=== PATIENT | female | born 1965 | race American Indian/Alaskan Native ===

== ENCOUNTER 2016-04-02 09:18 | Outpatient (CLI) | payer OTHER ==
--- NOTE | 2016-04-02 13:40 | Mammography Report ---
BILATERAL DIGITAL SCREENING MAMMOGRAM with CAD: 04/02/16 CLINICAL: Routine screening. COMPARISON:03/20/15 FINDINGS: The breasts are heterogeneously dense, which may obscure small masses. No mass, architectural distortion or suspicious calcifications. IMPRESSION: No mammographic evidence of malignancy. BI-RADS CATEGORY: 1 - - Negative RECOMMENDATION: Routine mammographic screening in one year. COMMENT: Patient follow-up letters are generated by our [employer] application. The
== END 2016-04-02 09:19 | disposition home or self-care (01) ==
LOC: SPVWC 09:18
PROVIDERS: ATTEND General Practice
DX: Z12.31 Encounter for screening mammogram for malignant neoplasm of breast (principal)
CPT/HCPCS: 77067; G0202

== ENCOUNTER 2020-07-09 22:57 | Emergency (ER) | payer OTHER ==
[2020-07-09] MEDS ORDERED: IPRATROPIUM 0.02% NEBU 2.5 ML IH ONE (23:18)
[2020-07-09] MEDS ORDERED: ALBUTEROL 2.5 MG/3 ML NEBU IH ONE (23:18)
--- NOTE | 2020-07-10 00:14 | XRay Report ---
CHEST 2 VIEWS INDICATION: sob. COMPARISON: None FINDINGS: SUPPORT DEVICES: None. HEART: Within normal limits. LUNGS/PLEURA: No acute air space or interstitial disease. No pneumothorax. ADDITIONAL FINDINGS: None. IMPRESSION: 1. No acute findings. Signer Name: Esdras Chang MD Signed: 07/10/2020 12:09 AM Workstation Name: [id number]
[2020-07-10] MEDS ORDERED: ACETAMINOPHEN 500 MG TAB PO ONE (00:47)
[2020-07-10] MEDS ORDERED: methylPREDNISolone Sod Succinate 125 MG/2 ML INJ IM ONE (00:47)
[2020-07-10] MEDS ORDERED: methylPREDNISolone Sod Succinate 125 MG/2 ML INJ ONE (00:48)
--- NOTE | 2020-07-10 01:29 | Emergency Department Report ---
- General Chief Complaint: Dyspnea/Respdistress Stated Complaint: ASTHMA/TROUBLE BREATHING Source: patient Mode of arrival: Ambulatory Limitations: No Limitations - History of Present Illness Initial Comments: Patient is a 55-year-old -[place] female with a history of asthma who presents to the ED with complaint of acute onset persistent nasal and sinus congestion, frontal sinus pressure, frontal headache, dry cough, wheezing and shortness of breath for the last 4 days. Patient states that she has been using her albuterol inhaler with no relief. Patient states that she was initially evaluated by her primary care physician 5 days ago and given a prescription for Breo but the insurance did not approve the prescription, and that in the last 2 days her symptoms got worse such that she has not been able to sleep because of worsening shortness of breath, cough, wheezing as well as nasal and sinus congestion and frontal sinus pressure. Patient states that in the last 12 hours she has had to use her bronchodilators multiple times with no relief. Patient states that she decided come to the ED for evaluation because her regular medications at home were not able to help. Patient denies chest pain, dizziness, syncope, fever, chills, sore throat, change in vision, abdominal pain, numbness and tingling or weakness of upper and lower extremities bilaterally, palpitations, neck pain or nosebleed. MD Complaint: cough (Dry cough), rhinorrhea, nasal congestion, sinus pain (Right maxillary and frontal sinus pressure), other (Shortness of breath, wheezing and dry cough due to asthma attack) -: Sudden, days(s) (4) Severity: severe Severity scale (0 -10): 7 Quality: dull, aching Consistency: intermittent Improves With: nothing Worsens With: activity, other (Exposure to pollen) Context: other (Exposure to pollen) Associated Symptoms: denies other symptoms, headache (Frontal headache), rhinorrhea, nasal congestion, shortness of breath. denies: fever, chills, stiff neck, cough, chest pain, abdominal pain, nausea, vomiting, diarrhea, dysuria, rash, confusion, right sweats, weight loss, epistaxis, ear pain Treatments Prior to Arrival: other (Bronchodilators albuterol) - Related Data Previous Rx's Medication Instructions Recorded Last Taken Type Acetaminophen/Codeine 1 tab PO Q6H PRN #20 tab 02/13/14 Unknown Rx [Acetaminophen-Codeine #3 TAB] Cyclobenzaprine [Flexeril 10mg] 10 mg PO TID PRN #30 tablet 02/13/14 Unknown Rx Ibuprofen [Motrin] 600 mg PO Q8H PRN #40 tablet 02/13/14 Unknown Rx Albuterol Mdi (or & Nicu Only) 2 puff IH QID PRN #1 inhalation 05/11/14 Unknown Rx [Proair] Amoxicillin [Amoxicillin TAB] 875 mg PO BID #28 tablet 05/11/14 Unknown Rx predniSONE [Prednisone] 10 mg PO Q24HR #12 tablet 05/11/14 Unknown Rx Amoxicillin [Trimox CAP] 500 mg PO Q8H #30 capsule 07/10/20 Unknown Rx Benzonatate [Tessalon Perles] 100 mg PO Q8HR #30 capsule 07/10/20 Unknown Rx Cetirizine HCl [Zyrtec 10mg tab] 10 mg PO DAILY #30 tablet 07/10/20 Unknown Rx Fluticasone [Flonase] 1 spray NS QDAY #1 bottle 07/10/20 Unknown Rx Montelukast [Singulair] 10 mg PO QPM #30 tablet 07/10/20 Unknown Rx methylPREDNISolone [Medrol 4MG 4 mg PO DAILY #21 tab.ds.pk 07/10/20 Unknown Rx DOSEPAK (21 tabs)] Allergies Allergy/AdvReac Type Severity Reaction Status Date / Time morphine Allergy Hives Verified 05/11/14 10:17 ED Review of Systems ROS: Stated complaint: ASTHMA/TROUBLE BREATHING Other details as noted in HPI Constitutional: denies: chills, fever Eyes: denies: eye pain, eye discharge, vision change ENT: congestion (Nasal and sinus congestion), other (Frontal and maxillary sinus pressure). denies: ear pain, throat pain Respiratory: cough (Dry cough), shortness of breath, wheezing Cardiovascular: denies: chest pain, palpitations Endocrine: no symptoms reported Gastrointestinal: denies: abdominal pain, nausea, diarrhea Genitourinary: denies: urgency, dysuria, discharge Musculoskeletal: denies: back pain, joint swelling, arthralgia Skin: denies: rash, lesions Neurological: headache (Frontal headache). denies: weakness, paresthesias Psychiatric: denies: anxiety, depression Hematological/Lymphatic: denies: easy bleeding, easy bruising ED Past Medical Hx - Past Medical History Hx Asthma: Yes - Surgical History Additional Surgical History: ABD SURGERY FROM DR ASCENCIO - Social History Smoking Status: Current Some Day Smoker - Medications Home Medications: Home Medications Medication Instructions Recorded Confirmed Last Taken Type Acetaminophen/Codeine 1 tab PO Q6H PRN #20 tab 02/13/14 Unknown Rx [Acetaminophen-Codeine #3 TAB] Cyclobenzaprine [Flexeril 10mg] 10 mg PO TID PRN #30 tablet 02/13/14 Unknown Rx Ibuprofen [Motrin] 600 mg PO Q8H PRN #40 tablet 02/13/14 Unknown Rx Albuterol Mdi (or & Nicu Only) 2 puff IH QID PRN #1 inhalation 05/11/14 Unknown Rx [Proair] Amoxicillin [Amoxicillin TAB] 875 mg PO BID #28 tablet 05/11/14 Unknown Rx predniSONE [Prednisone] 10 mg PO Q24HR #12 tablet 05/11/14 Unknown Rx Amoxicillin [Trimox CAP] 500 mg PO Q8H #30 capsule 07/10/20 Unknown Rx Benzonatate [Tessalon Perles] 100 mg PO Q8HR #30 capsule 07/10/20 Unknown Rx Cetirizine HCl [Zyrtec 10mg tab] 10 mg PO DAILY #30 tablet 07/10/20 Unknown Rx Fluticasone [Flonase] 1 spray NS QDAY #1 bottle 07/10/20 Unknown Rx Montelukast [Singulair] 10 mg PO QPM #30 tablet 07/10/20 Unknown Rx methylPREDNISolone [Medrol 4MG 4 mg PO DAILY #21 tab.ds.pk 07/10/20 Unknown Rx DOSEPAK (21 tabs)] ED Physical Exam - General Limitations: No Limitations General appearance: alert, in no apparent distress - Head Head exam: Present: atraumatic, normocephalic, normal inspection - Eye Eye exam: Present: normal appearance, PERRL, EOMI Pupils: Present: normal accommodation - ENT ENT exam: Present: normal orophraynx, mucous membranes moist, TM's normal b ilaterally, normal external ear exam, other (Grossly congested nasal passages; palpable frontal and maxillary sinus tenderness) - Neck Neck exam: Present: normal inspection, full ROM - Respiratory Respiratory exam: Present: wheezes (Diffuse mild wheezes throughout). Absent: respiratory distress, rales, rhonchi, stridor, chest wall tenderness, accessory muscle use, decreased breath sounds, prolonged expiratory - Cardiovascular Cardiovascular Exam: Present: normal rhythm, tachycardia, normal heart sounds. Absent: systolic murmur, diastolic murmur, rubs, gallop - GI/Abdominal GI/Abdominal exam: Present: soft, normal bowel sounds. Absent: tenderness, guarding, rebound, hyperactive bowel sounds, hypoactive bowel sounds, organomegaly - Extremities Exam Extremities exam: Present: normal inspection, full ROM, normal capillary refill - Back Exam Back exam: Present: normal inspection, full ROM. Absent: tenderness, CVA tenderness (R), CVA tenderness (L), muscle spasm, paraspinal tenderness, vertebral tenderness - Neurological Exam Neurological exam: Present: alert, oriented X3, CN II-XII intact, normal gait, reflexes normal - Psychiatric Psychiatric exam: Present: normal affect, normal mood - Skin Skin exam: Present: warm, dry, intact, normal color. Absent: rash ED Course Vital Signs 07/09/20 07/09/20 07/10/20 23:13 23:56 00:51 Temperature 97.9 F Pulse Rate 107 H Pulse Rate [ 102 H Bilateral Throughout] Respiratory 20 16 Rate Respiratory 20 Rate [Bilateral Throughout] Blood Pressure 157/83 O2 Sat by Pulse 91 Oximetry ED Medical Decision Making - Radiology Data Radiology results: report reviewed, image reviewed [address] [id number] XRay Report Signed Patient: MARY TIDWELL MR#: [id number] : 1965 Acct:[id number] Age/Sex: 55 / F ADM Date: 07/09/20 Loc: ED Attending Dr: Ordering Physician: EDER DOZIER MD Date of Service: 07/09/20 Procedure(s): XR chest routine 2V Accession Number(s): [id number] cc: ED MD JACOBY Fluoro Time In Minutes: CHEST 2 VIEWS INDICATION: sob. COMPARISON: None FINDINGS: SUPPORT DEVICES: None. HEART: Within normal limits. LUNGS/PLEURA: No acute air space or interstitial disease. No pneumothorax. ADDITIONAL FINDINGS: None. IMPRESSION: 1. No acute findings. Signer Name: Esdras Chang MD Signed: 07/10/2020 12:09 AM Workstation Name: [id number] Transcribed By: ADDY Dictated By: Esdras Chang MD Electronically Authenticated By: Esdras Chang MD Signed Date/Time: 07/10/208 DD/ TD/TT: - Medical Decision Making This is a 55-year-old -[place] female with a history of asthma who presents to the ED with complaint of acute onset persistent nasal and sinus congestion, frontal sinus pressure, frontal headache, dry cough, wheezing and shortness of breath for the last 4 days. Patient states that she has been using her albuterol inhaler with no relief. Patient states that she was initially evaluated by her primary care physician 5 days ago and given a prescription for Breo but the insurance did not approve the prescription, and that in the last 2 days her symptoms got worse such that she has not been able to sleep because of worsening shortness of breath, cough, wheezing as well as nasal and sinus congestion and frontal sinus pressure. Patient states that in the last 12 hours she has had to use her bronchodilators multiple times with no relief. Patient states that she decided come to the ED for evaluation because her regular medications at home were not able to help. In the ED, patient is alert and oriented x3 and is not in any distress. Patient is however tachycardic and afebrile in triage. Patient received DuoNeb treatment in the ED, also received Solu-Medrol 125 mg intramuscular injection. Chest x-ray showed no acute cardiopulmonary abnormalities or pneumonitis. On reevaluation, patient's wheezing resolved and her tachycardia also improved significantly to 102 bpm after using DuoNeb. Patient was therefore discharged home on medications and advised to follow-up with her primary care physician in 5 to 7 days for reevaluation or return to the ED immediately if symptoms get worse. - Differential Diagnosis Asthma; bronchitis; URI; sinusitis; pneumonia; allergic rhinitis Critical care attestation.: If time is entered above; I have spent that time in minutes in the direct care of this critically ill patient, excluding procedure time. ED Disposition Clinical Impression: Acute bronchitis with asthma with acute exacerbation, Acute non-recurrent frontal sinusitis, Chronic seasonal allergic rhinitis, Acute upper respiratory infection Disposition: - TO HOME OR SELFCARE Is pt being admited?: No Does the pt Need Aspirin: No Condition: Stable Instructions: Acute Bronchitis (ED), Sinusitis, Adult, [id number], Allergies, Adult, [id number]-nd-[id number], Upper Respiratory Infection, Adult, [id number], Acute Bronchitis, Adult, Fxpo-yj-Yqrm, Asthma, Adult, [id number]-[id number] Additional Instructions: Chest x-ray shows no acute cardiopulmonary abnormalities or pneumonitis. Take medication for asthma as needed, follow-up with your primary care physician in 3 to 5 days for reevaluation. Return to the ED immediately if symptoms get worse. Prescriptions: Fluticasone [Flonase] 1 spray NS QDAY #1 bottle methylPREDNISolone [Medrol 4MG DOSEPAK (21 tabs)] 4 mg PO DAILY #21 tab.ds.pk Montelukast [Singulair] 10 mg PO QPM #30 tablet Benzonatate [Tessalon Perles] 100 mg PO Q8HR #30 capsule Amoxicillin [Trimox CAP] 500 mg PO Q8H #30 capsule Cetirizine HCl [Zyrtec 10mg tab] 10 mg PO DAILY #30 tablet Referrals: ASHU LECHUGA MD [Staff Physician] - 3-5 Days Forms: Work/School Release Form(ED) Time of Disposition: 01:32 Print Language: YI
[2020-07-10 02:08] VITALS: BP 128/67
== END 2020-07-10 02:18 | disposition home or self-care (01) ==
LOC: ED 22:57
DX: J45.901 Unspecified asthma with (acute) exacerbation (principal); J06.9 Acute upper respiratory infection, unspecified; J30.2 Other seasonal allergic rhinitis; J01.10 Acute frontal sinusitis, unspecified; F17.200 Nicotine dependence, unspecified, uncomplicated; Z98.890 Other specified postprocedural states; Z88.6 Allergy status to analgesic agent; Z79.899 Other long term (current) drug therapy
CPT/HCPCS: 71046; 94640; 96372; 99283; J2930; 94644

== ENCOUNTER 2020-08-28 09:43 | Outpatient (CLI) | payer OTHER ==
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
== END 2020-08-28 09:44 | disposition home or self-care (01) ==
LOC: VAS 09:43
PROVIDERS: ATTEND Internal Medicine
DX: M79.661 Pain in right lower leg (principal); M79.662 Pain in left lower leg
CPT/HCPCS: 93970

== ENCOUNTER 2020-09-03 08:38 | Inpatient (IN) | payer BC, OTHER ==
--- NOTE | 2020-09-03 08:49 | Emergency Department Report ---
Blank Doc - Documentation Documentation: 55-year-old female that presents with shortness of breath and bilateral leg sw elling. Patient was sent by PCP. Patient recently few days ago had a negative Doppler to bilateral lower extremities. 1- This initial assessment/diagnostic orders/clinical plan/ treatment(s) is/are subject to change based on pt's health status, clinical progression and re- assessment by fellow clinical providers in the ED. Further treatment and workup at subsequent clinical provers discretion. Patient/guardians urged not to elope from ED as their condition may be serious if not clinically assessed and managed. 2-cardiac work-up with nasal cannula due to hypoxemia. 3-discharge rn notified of patient to be brought back [facility]
--- NOTE | 2020-09-03 09:13 | Emergency Department Report ---
HPI - General Chief Complaint: Extremity Problem,Nontraumatic Time Seen by Provider: 09/03/20 08:48 - HPI HPI: This is a 55-year-old -[place] female presents to the emergency department with a complaint of bilateral lower extremity swelling, right greater than left, that has been going on since late June. The patient had a left knee replacement done by her orthopedist, Dr. Crouch, in early June. She did follow- up with Dr. Crouch on July 23 for evaluation of the lower extremity swelling. She says that she had x-rays done and "he told me that this swelling had nothing to do with the surgery." She then followed up with her PCP the next day, Dr. Floyd. She had some blood work done that she says was normal. She was sent to our outpatient radiology on August 28 for a bilateral lower extremity venous Doppler ultrasound. The patient did not know the results of this but I can see that it has resulted as negative for any DVT. She was seen by the PCP again yesterday and was told to come to the emergency department for further evaluation. In triage the patient's room air pulse ox was 87%, and while I was in the room during my initial examination her oxygen saturation went as low as 73%. She was placed on oxygen via nasal cannula and went up into the low 90s. The patient denies any current shortness of breath but says that she has been having some intermittent shortness of breath over the past few months. She has a history of asthma and says that her shortness of breath improved after she was placed on an albuterol and Qvar inhaler by the PCP. She denies any fever, chest pain, back pain, rash, abdominal pain, nausea, vomiting or diaphoresis. She is a former smoker with a significant tobacco use history but says that she quit 1 month ago. ED Past Medical Hx - Past Medical History Hx Asthma: Yes - Surgical History Additional Surgical History: ABD SURGERY FROM DR ASCENCIO - Social History Smoking Status: Former Smoker Substance Use Type: None - Medications Home Medications: Home Medications Medication Instructions Recorded Confirmed Last Taken Type Acetaminophen/Codeine 1 tab PO Q6H PRN #20 tab 02/13/14 Unknown Rx [Acetaminophen-Codeine #3 TAB] Cyclobenzaprine [Flexeril 10mg] 10 mg PO TID PRN #30 tablet 02/13/14 Unknown Rx Ibuprofen [Motrin] 600 mg PO Q8H PRN #40 tablet 02/13/14 Unknown Rx Albuterol Mdi (or & Nicu Only) 2 puff IH QID PRN #1 inhalation 05/11/14 Unknown Rx [Proair] Amoxicillin [Amoxicillin TAB] 875 mg PO BID #28 tablet 05/11/14 Unknown Rx predniSONE [Prednisone] 10 mg PO Q24HR #12 tablet 05/11/14 Unknown Rx Amoxicillin [Trimox CAP] 500 mg PO Q8H #30 capsule 07/10/20 Unknown Rx Benzonatate [Tessalon Perles] 100 mg PO Q8HR #30 capsule 07/10/20 Unknown Rx Cetirizine HCl [Zyrtec 10mg tab] 10 mg PO DAILY #30 tablet 07/10/20 Unknown Rx Fluticasone [Flonase] 1 spray NS QDAY #1 bottle 07/10/20 Unknown Rx Montelukast [Singulair] 10 mg PO QPM #30 tablet 07/10/20 Unknown Rx methylPREDNISolone [Medrol 4MG 4 mg PO DAILY #21 tab.ds.pk 07/10/20 Unknown Rx DOSEPAK (21 tabs)] ED Review of Systems ROS: Stated complaint: LI LEG PAIN Other details as noted in HPI Comment: All other systems reviewed and negative Constitutional: denies: chills, fever Eyes: denies: eye pain, vision change ENT: denies: ear pain Respiratory: denies: cough, wheezing Cardiovascular: edema. denies: chest pain Gastrointestinal: denies: abdominal pain, vomiting Genitourinary: denies: dysuria, discharge Musculoskeletal: denies: back pain, arthralgia Skin: denies: rash, lesions Neurological: denies: headache, weakness Physical Exam - Physical Exam Vital Signs: Vital Signs 09/03/20 08:45 Temperature 98 F Pulse Rate 118 H Respiratory 22 Rate Blood Pressure 166/99 O2 Sat by Pulse 87 Oximetry Physical Exam: GENERAL: The patient is well-developed well-nourished. HENT: Normocephalic. Atraumatic. Patient has moist mucous membranes. EYES: Extraocular motions are intact. NECK: Supple. Trachea is midline. CHEST/LUNGS: Clear to auscultation. There is some mild tachypnea but no accessory muscle use. There is no respiratory distress noted. HEART/CARDIOVASCULAR: Regular. There is no tachycardia. There is no murmur. ABDOMEN: Abdomen is soft, nontender. Patient has normal bowel sounds. There is no abdominal distention. SKIN: Skin is warm and dry. 2-3+ pitting edema to the bilateral lower extremities with right greater than left. NEURO: The patient is awake, alert, and oriented. The patient is cooperative. The patient has no focal neurologic deficits. Normal speech. MUSCULOSKELETAL: There is no tenderness or deformity. There is no limitation range of motion. ED Course Vital Signs 09/03/20 08:45 Temperature 98 F Pulse Rate 118 H Respiratory 22 Rate Blood Pressure 166/99 O2 Sat by Pulse 87 Oximetry ED Medical Decision Making - Lab Data Result diagrams: 09/03/20 08:55 09/03/20 08:55 Lab Results 09/03/20 09/03/20 09/03/20 Range/Units 08:55 08:55 08:55 WBC 5.5 (4.5-11.0) K/mm3 RBC 5.09 H (3.65-5.03) M/mm3 Hgb 15.0 H (10.1-14.3) gm/dl Hct 46.5 H (30.3-42.9) % MCV 91 (79-97) fl MCH 30 (28-32) pg MCHC 32 (30-34) % RDW 16.9 H (13.2-15.2) % Plt Count 256 (140-440) K/mm3 Lymph % (Auto) 22.8 (13.4-35.0) % [place] % (Auto) 13.7 H (0.0-7.3) % Eos % (Auto) 1.7 (0.0-4.3) % Baso % (Auto) 0.9 (0.0-1.8) % Lymph # (Auto) 1.3 (1.2-5.4) K/mm3 [place] # (Auto) 0.8 (0.0-0.8) K/mm3 Eos # (Auto) 0.1 (0.0-0.4) K/mm3 Baso # (Auto) 0.0 (0.0-0.1) K/mm3 Seg Neutrophils % 60.9 (40.0-70.0) % Seg Neutrophils # 3.4 (1.8-7.7) K/mm3 PT 13.8 (12.2-14.9) Sec. INR 1.00 (0.87-1.13) APTT 25.4 (24.2-36.6) Sec. Sodium 140 (137-145) mmol/L Potassium 4.3 (3.6-5.0) mmol/L Chloride 99.3 (98-107) mmol/L Carbon Dioxide 26 (22-30) mmol/L Anion Gap 19 mmol/L BUN 9 (7-17) mg/dL Creatinine 0.6 (0.6-1.2) mg/dL Estimated GFR > 60 ml/min BUN/Creatinine Ratio 15 % Glucose 104 H (65-100) mg/dL Calcium 9.5 (8.4-10.2) mg/dL Magnesium (1.7-2.3) mg/dL Total Bilirubin 0.70 (0.1-1.2) mg/dL AST 62 H (5-40) units/L ALT 144 H (7-56) units/L Alkaline Phosphatase 117 (35-129) units/L Troponin T < 0.010 (0.00-0.029) ng/mL NT-Pro-B Natriuret Pep (0-900) pg/mL Total Protein 6.5 (6.3-8.2) g/dL Albumin 4.3 (3.9-5) g/dL Albumin/Globulin Ratio 2.0 % 09/03/20 09/03/20 09/03/20 Range/Units 08:55 08:55 11:43 WBC (4.5-11.0) K/mm3 RBC (3.65-5.03) M/mm3 Hgb (10.1-14.3) gm/dl Hct (30.3-42.9) % MCV (79-97) fl MCH (28-32) pg MCHC (30-34) % RDW (13.2-15.2) % Plt Count (140-440) K/mm3 Lymph % (Auto) (13.4-35.0) % [place] % (Auto) (0.0-7.3) % Eos % (Auto) (0.0-4.3) % Baso % (Auto) (0.0-1.8) % Lymph # (Auto) (1.2-5.4) K/mm3 [place] # (Auto) (0.0-0.8) K/mm3 Eos # (Auto) (0.0-0.4) K/mm3 Baso # (Auto) (0.0-0.1) K/mm3 Seg Neutrophils % (40.0-70.0) % Seg Neutrophils # (1.8-7.7) K/mm3 PT (12.2-14.9) Sec. INR (0.87-1.13) APTT (24.2-36.6) Sec. Sodium (137-145) mmol/L Potassium (3.6-5.0) mmol/L Chloride (98-107) mmol/L Carbon Dioxide (22-30) mmol/L Anion Gap mmol/L BUN (7-17) mg/dL Creatinine (0.6-1.2) mg/dL Estimated GFR ml/min BUN/Creatinine Ratio % Glucose (65-100) mg/dL Calcium (8.4-10.2) mg/dL Magnesium 1.70 (1.7-2.3) mg/dL Total Bilirubin (0.1-1.2) mg/dL AST (5-40) units/L ALT (7-56) units/L Alkaline Phosphatase (35-129) units/L Troponin T < 0.010 (0.00-0.029) ng/mL NT-Pro-B Natriuret Pep 2754 H (0-900) pg/mL Total Protein (6.3-8.2) g/dL Albumin (3.9-5) g/dL Albumin/Globulin Ratio % - EKG Data -: EKG Interpreted by Me EKG shows normal: sinus rhythm, axis (Right axis deviation), intervals, QRS complexes, ST-T waves Rate: tachycardia (113 bpm) - EKG Data When compared to previous EKG there are: previous EKG unavailable Interpretation: other (Sinus tachycardia 113 bpm, right axis deviation. No ST elevation IL.) - Radiology Data Radiology results: report reviewed, image reviewed interpreted by me: Chest x-ray shows some pulmonary vascular congestion and mild basilar pleural effusions. No pneumothorax. No obvious pneumonia. CTA CHEST WITH CONTRAST INDICATION / CLINICAL INFORMATION: SOB, hypoxia, LE swelling OMNIPAQUE 350 100ML. TECHNIQUE: Axial CT images were obtained through the chest after injection of 100 cc Omnipaque 350 IV contrast. 3 plane MIP and/or 3D reconstructions were produced. All CT scans at this location are performed using CT dose reduction for ALARA by means of automated exposure control. COMPARISON: Chest radiograph 09/03/2020 FINDINGS: PULMONARY ARTERIES: No pulmonary emboli. THORACIC AORTA: No significant abnormality. HEART: Upper limits normal heart size. Small amount of pericardial fluid is likely physiologic. CORONARY ARTERY CALCIFICATION: Mild. MEDIASTINUM / DEYSI: Upper limits normal size lymph nodes without definite adenopathy. PLEURA: No pleural effusion. No pneumothorax. LUNGS: Mild-moderate pulmonary emphysema. 6 mm pulmonary nodule in the left lower lobe (axial series 2 image 56). No acute interstitial or airspace disease. ADDITIONAL FINDINGS: None. UPPER ABDOMEN: No acute findings. SKELETAL STRUCTURES: No significant osseous abnormality. IMPRESSION: 1. No CT evidence for pulmonary embolism. 2. No acute findings. 3. 6 mm pulmonary nodule in the left lower lobe. See recommendations below. 4. Mild- moderate pulmonary emphysema. - Medical Decision Making This patient presents with the complaint of bilateral lower extremity swelling. She does have some intermittent shortness of breath. On examination the patient has some tachypnea but no accessory muscle use. However, while I was at bedside, the patient had a room air pulse ox of 73%. She was placed on 4 L via nasal cannula and went up into the 90s. Chest x-ray shows pulmonary vascular congestion and some mild basilar pleural effusions. Patient's labs shows some t ransaminitis and an elevated BNP of about 2500. With the chest x-ray findings and the elevated proBNP the patient appears to have new onset or undiagnosed CHF. She was given IV Lasix to start diuresis. Given the hypoxia and the bilateral lower extremity swelling, the patient had a CT angiography of the chest that did not show any evidence of a pulmonary embolism and shows a pulmonary nodule. The patient will be admitted to the hospital for further evaluation and treatment was accepted for admission by the hospitalist, Dr. Bañuelos. Critical Care Time: Yes Critical care time in (mins) excluding proc time.: 35 Critical care attestation.: If time is entered above; I have spent that time in minutes in the direct care of this critically ill patient, excluding procedure time. Critical care time was spent on this patient in doing her initial evaluation, multiple reevaluations, ordering and interpretation of labs and imaging, IV Lasix for diuresis, supplemental oxygen to treat her hypoxia, multiple discussions with the patient. Critical Care Time: 35 minutes ED Disposition Clinical Impression: New onset of congestive heart failure, Hypoxemia, Bilateral lower extremity edema Disposition: OP ADMIT IP TO THIS HOSP Is pt being admited?: Yes Condition: Serious Time of Disposition: 13:28
[2020-09-03 09:32] LABS: Alanine Aminotransferase 144 units/L (7-56); Albumin 4.3 g/dL (3.9-5); BUN/Creatinine Ratio 15; Blood Urea Nitrogen 9 mg/dL (7-17); Calcium 9.5 mg/dL (8.4-10.2); Hemolysis Index 9
--- NOTE | 2020-09-03 09:46 | XRay Report ---
CHEST 1 VIEW 09/03/2020 8:37 AM INDICATION / CLINICAL INFORMATION: SOB. COMPARISON: 07/09/2020 FINDINGS: SUPPORT DEVICES: None. HEART / MEDIASTINUM: Stable. LUNGS / PLEURA: Blunting of the costophrenic sulci suggesting small bilateral pleural effusions. Lung s appear otherwise clear. No pneumothorax. ADDITIONAL FINDINGS: No significant additional findings. IMPRESSION: 1. Small bilateral pleural effusions. Signer Name: Bertin Johnson MD Signed: 09/03/2020 9:42 AM Workstation Name: [id number]
[2020-09-03 09:48] LABS: Basophils % (Auto) 0.9 % (0.0-1.8); Eosinophils # (Auto) 0.1 K/mm3 (0.0-0.4); Eosinophils % (Auto) 1.7 % (0.0-4.3); Hematocrit 46.5 % (30.3-42.9); Lymphocytes # (Auto) 1.3 K/mm3 (1.2-5.4); Lymphocytes % (Auto) 22.8 % (13.4-35.0); Mean Corpuscular HGB Conc 32 % (30-34); Mean Corpuscular Volume 91 fl (79-97); Monocytes # (Auto) 0.8 K/mm3 (0.0-0.8); Monocytes % (Auto) 13.7 % (0.0-7.3); Platelet Count 256 K/mm3 (140-440); Red Blood Count 5.09 M/mm3 (3.65-5.03); Red Cell Distribution Width 16.9 % (13.2-15.2)
[2020-09-03] MEDS ORDERED: FUROSEMIDE 20 MG/2 ML INJ IV ONE (09:50)
[2020-09-03 09:56] LABS: Partial Thromboplastin Time 25.4 Sec. (24.2-36.6)
[2020-09-03] MEDS ORDERED: IPRATROPIUM/ALBUTEROL SULFATE 3 ML AMPUL.NEB IH ONE (11:05)
--- NOTE | 2020-09-03 11:31 | Cat Scan Report ---
CTA CHEST WITH CONTRAST INDICATION / CLINICAL INFORMATION: SOB, hypoxia, LE swelling OMNIPAQUE 350 100ML. TECHNIQUE: Axial CT images were obtained through the chest after injection of 100 cc Omnipaque 350 IV contrast. 3 plane MIP and/or 3D reconstructions were produced. All CT scans at this location are per formed using CT dose reduction for ALARA by means of automated exposure control. COMPARISON: Chest radiograph 09/03/2020 FINDINGS: PULMONARY ARTERIES: No pulmonary emboli. THORACIC AORTA: No significant abnormality. HEART: Upper limits normal heart size. Small amount of pericardial fluid is likely physiologic. CORONARY ARTERY CALCIFICATION: Mild. MEDIASTINUM / DEYSI: Upper limits normal size lymph nodes without definite adenopathy. PLEURA: No pleural effusion. No pneumothorax. LUNGS: Mild-moderate pulmonary emphysema. 6 mm pulmonary nodule in the left lower lobe (axial series 2 image 56). No acute interstitial or airspace disease. ADDITIONAL FINDINGS: None. UPPER ABDOMEN: No acute findings. SKELETAL STRUCTURES: No significant osseous abnormality. IMPRESSION: 1. No CT evidence for pulmonary embolism. 2. No acute findings. 3. 6 mm pulmonary nodule in the left lower lobe. See recommendations below. 4. Mild-moderate pulmonary emphysema. INCIDENTAL PULMONARY NODULE RECOMMENDATIONS Solid Nodule size 6-8 mm -- Single - Low Risk Patient: CT at 6-12 months, then consider CT at 18-24 months - High Risk Patient: CT at 6-12 months, then CT at 18-24 months Note These recommendations do not apply to lung cancer screening, patients with immunosuppression, o r patients with known primary cancer. Note Newly detected indeterminate nodule in persons 35 years of age or older. Persons under the age of 35 should not receive follow-up unless there is a known primary cancer. Low Risk Patient -- minimal or absent history of smoking and of other known risk factors. High Risk Patient -- history of smoking or of other known risk factors. Nodule dimensions are average of long and short axes, rounded to the nearest millimeter. Based on 2017 Fleischner Society Guidelines found in Radiology 2017 284:228-243. https://[email or web address] [email or web address] Signer Name: Bertin Johnson MD Signed: 09/03/2020 11:27 AM Workstation Name: [id number]
--- NOTE | 2020-09-03 11:34 | History and Physical Report ---
History of Present Illness Chief complaint: My legs are swollen and i feel tired History of present illness: 55 YO Female with Asthma, OA presents to ED for evaluation. Patient reported "my legs are swollen and I feel tired all the time". Patient states that she has experienced lower extremity edema, generalized weakness, decreased exercise tolerance, shortness of breath, orthopnea, paroxysmal nocturnal dyspnea over the past 1 month with progressively worsening symptoms over the same timeframe. Patient transported to [facility] via private vehicle for further care and evaluation of the aforementioned symptoms. The patient was seen and evaluated in the emergency department. All lab and imaging studies reviewed. The patient was found to have a pulse oximetry of 87% on room air which is consistent with acute hypoxemic respiratory failure. Chest x-ray revealed vascular congestion as well as mild pleural effusion. Patient found to have clinical symptoms as well as lab findings consistent with CHF decompensation. Patient treated with diuretic therapy with mild improvement in symptoms and also placed on supplemental oxygen with mild improvement in symptoms. Patient admitted to telemetry and initiated on CHF protocol. Cardiology team consulted in ED. Patient denies fever, chills, chest pain, palpitation, productive cough, skin rash, recent ill contacts, prolonged travel/immobility, unilateral leg swelling, calf pain, individual/family history of DVT/PE/bleeding/blood clotting disorder, or known exposure to COVID-19. No prior admission for review. No medication listed at time of admission reconciliation. Past History Past Medical History: arthritis, other (See HPI) Past Surgical History: bowel surgery Social history: single. denies: smoking, alcohol abuse Family history: diabetes, hypertension Medications and Allergies Allergies Allergy/AdvReac Type Severity Reaction Status Date / Time morphine Allergy Hives Verified 09/03/20 08:48 Home Medications Medication Instructions Recorded Confirmed Last Taken Type Acetaminophen/Codeine 1 tab PO Q6H PRN #20 tab 02/13/14 Unknown Rx [Acetaminophen-Codeine #3 TAB] Cyclobenzaprine [Flexeril 10mg] 10 mg PO TID PRN #30 tablet 02/13/14 Unknown Rx Ibuprofen [Motrin] 600 mg PO Q8H PRN #40 tablet 02/13/14 Unknown Rx Albuterol Mdi (or & Nicu Only) 2 puff IH QID PRN #1 inhalation 05/11/14 Unknown Rx [Proair] Amoxicillin [Amoxicillin TAB] 875 mg PO BID #28 tablet 05/11/14 Unknown Rx predniSONE [Prednisone] 10 mg PO Q24HR #12 tablet 05/11/14 Unknown Rx Amoxicillin [Trimox CAP] 500 mg PO Q8H #30 capsule 07/10/20 Unknown Rx Benzonatate [Tessalon Perles] 100 mg PO Q8HR #30 capsule 07/10/20 Unknown Rx Cetirizine HCl [Zyrtec 10mg tab] 10 mg PO DAILY #30 tablet 07/10/20 Unknown Rx Fluticasone [Flonase] 1 spray NS QDAY #1 bottle 07/10/20 Unknown Rx Montelukast [Singulair] 10 mg PO QPM #30 tablet 07/10/20 Unknown Rx methylPREDNISolone [Medrol 4MG 4 mg PO DAILY #21 tab.ds.pk 07/10/20 Unknown Rx DOSEPAK (21 tabs)] Review of Systems Constitutional: no weight loss, no weight gain, no fever, no chills Ears, nose, mouth and throat: no ear pain, no decreased hearing, no nose pain, no nasal discharge, no sinus pressure Breasts: no change in shape, no swelling, no mass Cardiovascular: orthopnea, shortness of breath, dyspnea on exertion, paroxysmal nocturnal dyspnea, decreased exercise tolerance, no chest pain, no rapid/irregular heart beat Respiratory: no cough, no excessive sputum Gastrointestinal: no abdominal pain, no nausea, no vomiting, no diarrhea, no constipation Genitourinary Female: no pelvic pain, no flank pain, no dysuria, no urinary frequency, no urgency Rectal: no pain, no incontinence, no bleeding Musculoskeletal: no neck stiffness, no neck pain, no low back pain, no leg numbness/tingling Integumentary: no rash, no pruritis, no redness, no sores, no wounds Neurological: no transient paralysis, no paralysis, no numbness, no tingling, no seizures, no syncope Psychiatric: no anxiety, no change in sleep habits, no sleep disturbances, no hypersomnia, no change in appetite, no change in libido Endocrine: no cold intolerance, no heat intolerance, no excessive thirst, no polydipsia, no polyuria, no excessive sweating Hematologic/Lymphatic: no easy bruising, no easy bleeding, no lymphadenopathy, no lymphedema Allergic/Immunologic: no urticaria, no allergic rhinitis, no wheezing, no anaphylaxis, no angioedema Exam - Constitutional Vitals: Temp Pulse Resp BP Pulse Ox 98 F 112 H 24 166/99 95 09/03/20 08:45 09/03/20 08:48 09/03/20 08:48 09/03/20 08:45 09/03/20 09:19 General appearance: Present: mild distress - EENT Eyes: Present: PERRL ENT: hearing intact, clear oral mucosa - Neck Neck: Present: supple, normal ROM - Respiratory Respiratory effort: normal Respiratory: bilateral: diminished, rales - Cardiovascular Heart Sounds: Present: S1 & S2. Absent: rub, click - Extremities Extremities: pulses symmetrical Extremity abnormal: edema Peripheral Pulses: within normal limits - Abdominal General gastrointestinal: Present: soft, non-tender, non-distended, normal bowel sounds Female genitourinary: Present: normal - Integumentary Integumentary: Present: clear, warm, dry - Musculoskeletal Musculoskeletal: generalized weakness - Psychiatric Psychiatric: appropriate mood/affect, intact judgment & insight, cooperative - Neurologic Neurologic: CNII-XII intact, moves all extremities HEART Score - HEART Score Troponin: Troponin T < 0.010 ng/mL (0.00-0.029) 09/03/20 08:55 Results - Labs CBC & Chem 7: 09/03/20 08:55 09/03/20 08:55 Labs: Abnormal lab results 09/03/20 09/03/20 09/03/20 Range/Units 08:55 08:55 08:55 RBC 5.09 H (3.65-5.03) M/mm3 Hgb 15.0 H (10.1-14.3) gm/dl Hct 46.5 H (30.3-42.9) % RDW 16.9 H (13.2-15.2) % [place] % (Auto) 13.7 H (0.0-7.3) % Glucose 104 H (65-100) mg/dL AST 62 H (5-40) units/L ALT 144 H (7-56) units/L NT-Pro-B Natriuret Pep 2754 H (0-900) pg/mL Assessment and Plan - Patient Problems (1) New onset of congestive heart failure Current Visit: Yes Status: Acute Plan to address problem: CHF protocol: Diuresis with Lasix, supplemental oxygen, pulse oximetry, nebulizer therapy, strict I's/O, monitor urine output every shift, daily weight, afterload reduction, echocardiogram ordered and pending at time of admission, t hyroid panel, magnesium level, cardiology team consulted in ED. (2) Acute respiratory failure Current Visit: Yes Status: Acute Qualifiers: Respiratory failure complication: hypoxia Qualified Code(s): J96.01 - Acute respiratory failure with hypoxia Plan to address problem: Supplemental oxygen, pulse oximetry, nebulizer therapy, chest x-ray, supportive care. (3) DVT prophylaxis Current Visit: Yes Status: Acute Plan to address problem: SCD to bilateral lower extremities while in bed, patient is ambulatory
[2020-09-03] MEDS ORDERED: ALBUTEROL 2.5 MG/3 ML NEBU IH PRN (11:35)
[2020-09-03] MEDS ORDERED: ONDANSETRON 4 MG/2 ML INJ IV PRN (11:35)
[2020-09-03] MEDS ORDERED: ACETAMINOPHEN 325 MG TAB PO PRN (11:35)
[2020-09-03] MEDS ORDERED: IBUPROFEN 600 MG TAB PO PRN (11:37)
[2020-09-03] MEDS ORDERED: ACETAMINOPHEN W/CODEINE 300-30 MG TAB PO PRN (11:37)
[2020-09-03 13:15] LABS: Free T4 (Free Thyroxine) 1.33 ng/dL (0.76-1.46)
[2020-09-03] MEDS: FUROSEMIDE 20 MG/2 ML INJ IV SCH (22:24)
[2020-09-03] MEDS: MONTELUKAST 10 MG TAB PO SCH (22:25)
[2020-09-04] MEDS: CYCLOBENZAPRINE 10 MG TAB PO PRN ×2 (00:57→18:27)
[2020-09-04] MEDS ORDERED: HYDROmorphone 2 MG/1 ML INJ IV ONE (03:42)
[2020-09-04] MEDS: FUROSEMIDE 20 MG/2 ML INJ IV SCH ×2 (05:03→18:21)
[2020-09-04 06:04] LABS: Blood Urea Nitrogen 8 mg/dL (7-17); Calcium 9.1 mg/dL (8.4-10.2); Hemolysis Index 1
[2020-09-04 06:09] LABS: BUN/Creatinine Ratio 16
[2020-09-04] MEDS: FLUTICASONE PROPIONATE NASAL SPRAY 16 GM NS SCH ×2 (08:04→14:44)
[2020-09-04] MEDS: HEPARIN 5,000 UNIT/1 ML VIAL SUB-Q SCH ×2 (11:08→21:40)
[2020-09-04] MEDS: CETIRIZINE 10 MG TAB PO SCH (11:08)
[2020-09-04] MEDS ORDERED: IBUPROFEN 600 MG TAB PO PRN (11:14)
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
--- NOTE | 2020-09-04 15:00 | Electrocardiograph Report ---
[facility] Test Date: 2020-09-03 Test Time: 08:51:45 Pat Name: MARY TIDWELL Department: Room: A458 1 Gender: F Framing Carpenter: LEXUS : 1965 Requested By: JUSTIN RAZO Order Number: [id number] Reading MD: Mabel Cleary Measurements Intervals [place] Rate: 113 P: 67 OK: 163 QRS: 133 QRSD: 78 T: -23 QT: 324 QTc: 446 Interpretive Statements Sinus tachycardia Probable left atrial enlargement Right axis deviation No previous ECG available for comparison Electronically Signed On 09-04-2020 15:00:23 EDT by Mabel Cleary
[2020-09-04] MEDS: MONTELUKAST 10 MG TAB PO SCH (18:21)
[2020-09-04] MEDS: ACETAMINOPHEN W/CODEINE 300-30 MG TAB PO PRN (18:28)
[2020-09-04 18:51] LABS: Bilirubin,Urine NEG (Negative); Blood,Urine NEG (Negative); Color,Urine Yellow (Yellow); Protein,Urine <15 mg/dL mg/dL (Negative); Urobilinogen,Urine < 2.0 mg/dL (<2.0)
[2020-09-04 19:18] LABS: RBC,Urine < 1.0 /HPF (0.0-6.0)
[2020-09-05 04:59] LABS: Hematocrit 43.9 % (30.3-42.9); Mean Corpuscular HGB Conc 32 % (30-34); Mean Corpuscular Volume 92 fl (79-97); Platelet Count 207 K/mm3 (140-440); Red Blood Count 4.78 M/mm3 (3.65-5.03); Red Cell Distribution Width 16.6 % (13.2-15.2)
[2020-09-05 05:15] LABS: Blood Urea Nitrogen 10 mg/dL (7-17); Calcium 8.8 mg/dL (8.4-10.2); Hemolysis Index 5
[2020-09-05 05:18] LABS: BUN/Creatinine Ratio 20
[2020-09-05] MEDS: FUROSEMIDE 20 MG/2 ML INJ IV SCH (06:00)
--- NOTE | 2020-09-05 07:26 | Progress Note ---
Assessment and Plan Assessment and Plan - Patient Problems (1) New onset of congestive heart failure Current Visit: Yes Status: Acute Plan to address problem: Continue IV Lasix Still very short of breath Check echocardiogram (2) Acute respiratory failure Current Visit: Yes Status: Acute Qualifiers: Respiratory failure complication: hypoxia Qualified Code(s): J96.01 - Acute respiratory failure with hypoxia Plan to address problem: Supplemental oxygen, pulse oximetry, nebulizer therapy, chest x-ray, supportive care. (3) DVT prophylaxis Current Visit: Yes Status: Acute Plan to address problem: SCD to bilateral lower extremities while in bed, patient is ambulatory Subjective Date of service: 09/04/20 Principal diagnosis: CHF exacerbation Interval history: 55 YO Female with Asthma, OA presents to ED for evaluation. Patient reported "my legs are swollen and I feel tired all the time". Patient states that she has experienced lower extremity edema, generalized weakness, decreased exercise tolerance, shortness of breath, orthopnea, paroxysmal nocturnal dyspnea over the past 1 month with progressively worsening symptoms over the same timeframe. Patient transported to [facility] via private vehicle for further care and evaluation of the aforementioned symptoms. The patient was seen and evaluated in the emergency department. All lab and imaging studies reviewed. The patient was found to have a pulse oximetry of 87% on room air which is consistent with acute hypoxemic respiratory failure. Chest x-ray revealed vascular congestion as well as mild pleural effusion. Patient found to have clinical symptoms as well as lab findings consistent with CHF decompensation. Patient treated with diuretic therapy with mild improvement in symptoms and also placed on supplemental oxygen with mild improvement in symptoms. Patient admitted to telemetry and initiated on CHF protocol. Cardiology team consulted in ED. Patient denies fever, chills, chest pain, palpitation, productive cough, skin rash, recent ill contacts, prolonged travel/immobility, unilateral leg swelling, calf pain, individual/family history of DVT/PE/bleeding/blood clotting disorder, or known exposure to COVID-19. No prior admission for review. No medication listed at time of admission reconciliation. Objective - Constitutional Vitals: Vital Signs - 12hr 09/04/20 09/04/20 09/04/20 21:00 22:00 23:26 Temperature 97.5 F L Pulse Rate 88 85 Respiratory 16 20 Rate Blood Pressure 113/71 O2 Sat by Pulse 97 99 Oximetry 09/05/20 09/05/20 04:51 06:45 Temperature 98.9 F 99.4 F Pulse Rate 91 H 99 H Respiratory 20 20 Rate Blood Pressure 110/71 113/87 O2 Sat by Pulse 94 88 Oximetry General appearance: Present: no acute distress, well-nourished - EENT Eyes: PERRL, EOM intact ENT: hearing intact, clear oral mucosa Ears: bilateral: normal - Neck Neck: supple, normal ROM - Respiratory Respiratory effort: normal Respiratory: bilateral: CTA - Breasts Breasts: normal - Cardiovascular Heart rate: 78 Rhythm: regular Heart Sounds: Present: S1 & S2. Absent: gallop, rub Extremities: pulses intact, No edema, normal color, Full ROM - Gastrointestinal General gastrointestinal: Present: soft, non-tender, non-distended, normal bowel sounds - Genitourinary Female genitourinary: normal - Integumentary Integumentary: clear, warm, dry - Musculoskeletal Musculoskeletal: 1, strength equal bilaterally - Neurologic Neurologic: moves all extremities - Psychiatric Psychiatric: memory intact, appropriate mood/affect, intact judgment & insight - Labs CBC & Chem 7: 09/05/20 04:19 09/05/20 04:19 Labs: Abnormal lab results 09/04/20 09/05/20 09/05/20 Range/Units 13:42 04:19 04:19 Hct 43.9 H (30.3-42.9) % RDW 16.6 H (13.2-15.2) % D-Dimer 566.84 H (0-234) ng/mlDDU Chloride 95.2 L (98-107) mmol/L Carbon Dioxide 33 H (22-30) mmol/L Creatinine 0.5 L (0.6-1.2) mg/dL Glucose 116 H (65-100) mg/dL HEART Score - HEART Score Troponin: Troponin T < 0.010 ng/mL (0.00-0.029) 09/05/20 04:19
[2020-09-05] MEDS: HEPARIN 5,000 UNIT/1 ML VIAL SUB-Q SCH ×3 (09:50→21:30)
--- NOTE | 2020-09-05 10:12 | Progress Note ---
Assessment and Plan Assessment and plan: --New onset of congestive heart failure Current Visit: Yes Status: Acute Heart failure with preserved LVEF Possible systolic CHF, continue antifailure medications EF 55 to 60%, mild diastolic dysfunction Possible acute diastolic CHF Continue antifailure medications -- Acute hypoxic respiratory failure Current Visit: Yes Status: Acute Requiring supplemental oxygen, Titrate O2 sats to more than 90% Due to diastolic dysfunction/heart failure with preserved EF Continue antifailure medications Partly due to bronchial asthma Continue nebulizer therapy, chest x-ray, supportive care. --History of bronchial asthma; Current Visit: Yes Status: Acute Continue bronchodilators, steroids, oxygen and supportive care Patient will follow with PMD/pulmonary upon discharge --Elevated D-dimers Current Visit: Yes Status: Acute . CTA chest negative for PE Check lower extremity venous Doppler 08/28/2020 Negative for DVT ,elevate the limb --Edema lower extremities; Current Visit: Yes Status: Acute secondary to CHF with preserved LV function Elevate the limb, diuretic, low-sodium diet Fluid restriction, supportive care Cardiology following --DVT prophylaxis Current Visit: Yes Status: Acute . Plan to address problem: Heparin subcu We will closely monitor the patient and adjust the management as needed Plan of care reviewed with the patient and her nurse Cardiology recommendations noted and appreciated Possible discharge in 1 to 2 days if stable 09/05/2020; Elevated D-dimers, CTA chest negative for PE Check lower extremity venous Doppler 08/28/2020 - negative DVT Continue antifailure medications Possible discharge in 1 to 2 days if stable History Interval history: I have seen and examined the patient at the bedside this morning Patient's chart and medications reviewed Patient complains of lower extremity swelling Denies shortness of breath or chest pain Vital signs noted Hospitalist Physical - Constitutional Vitals: Temp Pulse Resp BP Pulse Ox 99.4 F 99 H 20 113/87 95 09/05/20 06:45 09/05/20 06:45 09/05/20 06:45 09/05/20 06:45 09/05/20 09:18 General appearance: Present: no acute distress, well-nourished - EENT Eyes: Present: PERRL, EOM intact - Neck Neck: Present: supple, normal ROM - Respiratory Respiratory effort: normal Respiratory: bilateral: diminished, negative: rales, rhonchi, wheezing - Cardiovascular Rhythm: regular Heart Sounds: Present: S1 & S2 - Extremities Extremities: no ischemia, No edema - Abdominal General gastrointestinal: soft, non-tender, non-distended, normal bowel sounds - Integumentary Integumentary: Present: clear, warm, dry - Psychiatric Psychiatric: appropriate mood/affect, cooperative - Neurologic Neurologic: CNII-XII intact, gait normal HEART Score - HEART Score Troponin: Troponin T < 0.010 ng/mL (0.00-0.029) 09/05/20 04:19 Results - Labs CBC & Chem 7: 09/05/20 04:19 09/05/20 04:19 Labs: Laboratory Last Values WBC 4.6 K/mm3 (4.5-11.0) 09/05/20 04:19 RBC 4.78 M/mm3 (3.65-5.03) 09/05/20 04:19 Hgb 14.0 gm/dl (10.1-14.3) 09/05/20 04:19 Hct 43.9 % (30.3-42.9) H 09/05/20 04:19 MCV 92 fl (79-97) 09/05/20 04:19 MCH 29 pg (28-32) 09/05/20 04:19 MCHC 32 % (30-34) 09/05/20 04:19 RDW 16.6 % (13.2-15.2) H 09/05/20 04:19 Plt Count 207 K/mm3 (140-440) 09/05/20 04:19 Lymph % (Auto) 22.8 % (13.4-35.0) 09/03/20 08:55 [place] % (Auto) 13.7 % (0.0-7.3) H 09/03/20 08:55 Eos % (Auto) 1.7 % (0.0-4.3) 09/03/20 08:55 Baso % (Auto) 0.9 % (0.0-1.8) 09/03/20 08:55 Lymph # (Auto) 1.3 K/mm3 (1.2-5.4) 09/03/20 08:55 [place] # (Auto) 0.8 K/mm3 (0.0-0.8) 09/03/20 08:55 Eos # (Auto) 0.1 K/mm3 (0.0-0.4) 09/03/20 08:55 Baso # (Auto) 0.0 K/mm3 (0.0-0.1) 09/03/20 08:55 Seg Neutrophils % 60.9 % (40.0-70.0) 09/03/20 08:55 Seg Neutrophils # 3.4 K/mm3 (1.8-7.7) 09/03/20 08:55 PT 13.8 Sec. (12.2-14.9) 09/03/20 08:55 INR 1.00 (0.87-1.13) 09/03/20 08:55 APTT 25.4 Sec. (24.2-36.6) 09/03/20 08:55 D-Dimer 566.84 ng/mlDDU (0-234) H 09/04/20 13:42 Sodium 138 mmol/L (137-145) 09/05/20 04:19 Potassium 4.3 mmol/L (3.6-5.0) 09/05/20 04:19 Chloride 95.2 mmol/L (98-107) L 09/05/20 04:19 Carbon Dioxide 33 mmol/L (22-30) H 09/05/20 04:19 Anion Gap 14 mmol/L 09/05/20 04:19 BUN 10 mg/dL (7-17) 09/05/20 04:19 Creatinine 0.5 mg/dL (0.6-1.2) L 09/05/20 04:19 Estimated GFR > 60 ml/min 09/05/20 04:19 BUN/Creatinine Ratio 20 % 09/05/20 04:19 Glucose 116 mg/dL (65-100) H 09/05/20 04:19 Calcium 8.8 mg/dL (8.4-10.2) 09/05/20 04:19 Magnesium 1.70 mg/dL (1.7-2.3) 09/03/20 08:55 Total Bilirubin 0.70 mg/dL (0.1-1.2) 09/03/20 08:55 AST 62 units/L (5-40) H 09/03/20 08:55 ALT 144 units/L (7-56) H 09/03/20 08:55 Alkaline Phosphatase 117 units/L (35-129) 09/03/20 08:55 Troponin T < 0.010 ng/mL (0.00-0.029) 09/05/20 04:19 NT-Pro-B Natriuret Pep 2754 pg/mL (0-900) H 09/03/20 08:55 Total Protein 6.5 g/dL (6.3-8.2) 09/03/20 08:55 Albumin 4.3 g/dL (3.9-5) 09/03/20 08:55 Albumin/Globulin Ratio 2.0 % 09/03/20 08:55 TSH 1.510 mlU/mL (0.270-4.200) 09/03/20 08:55 Free T4 1.33 ng/dL (0.76-1.46) 09/03/20 08:55 Urine Color Yellow (Yellow) 09/03/20 Unknown Urine Turbidity Clear (Clear) 09/03/20 Unknown Urine pH 5.0 (5.0-7.0) 09/03/20 Unknown Ur Specific [place] 1.018 (1.003-1.030) 09/03/20 Unknown Urine Protein <15 mg/dl mg/dL (Negative) 09/03/20 Unknown Urine Glucose (UA) Neg mg/dL (Negative) 09/03/20 Unknown Urine Ketones Neg mg/dL (Negative) 09/03/20 Unknown Urine Blood Neg (Negative) 09/03/20 Unknown Urine Nitrite Neg (Negative) 09/03/20 Unknown Urine Bilirubin Neg (Negative) 09/03/20 Unknown Urine Urobilinogen < 2.0 mg/dL (<2.0) 09/03/20 Unknown Ur Leukocyte Esterase Neg (Negative) 09/03/20 Unknown Urine WBC (Auto) 1.0 /HPF (0.0-6.0) 09/03/20 Unknown Urine RBC (Auto) < 1.0 /HPF (0.0-6.0) 09/03/20 Unknown U Epithel Cells (Auto) < 1.0 /HPF (0-13.0) 09/03/20 Unknown [place]/IV: Voiding Method Toilet Active Medications - Current Medications Current Medications: Generic Name Dose Route Start Last Admin Trade Name Freq PRN Reason Stop Dose Admin Acetaminophen 650 mg 09/03/20 11:35 Acetaminophen 325 Mg Tab PO Q4H PRN Pain MILD(1-3)/Fever >100.5/WAGNER Acetaminophen/Codeine Phosphate 1 tab 09/04/20 11:13 09/04/20 18:28 Acetaminophen W/Codeine 300-30 Mg Tab PO 1 tab Q6H PRN Administration Pain, Mild (1-3) Albuterol 2.5 mg 09/03/20 11:35 Albuterol 2.5 Mg/3 Ml Nebu IH Q4H PRN Shortness Of Breath Cetirizine HCl 10 mg 09/04/20 10:00 09/04/20 11:08 Cetirizine 10 Mg Tab PO 10 mg DAILY [facility] Administration Cyclobenzaprine HCl 10 mg 09/03/20 11:37 09/04/20 18:27 Cyclobenzaprine 10 Mg Tab PO 10 mg TID PRN Administration Muscle Spasm Fluticasone Propionate 50 mcg 09/03/20 13:00 09/04/20 14:44 Fluticasone Propionate Nasal [place] 16 Gm NS Not Given QDAY [facility] Furosemide 20 mg 09/03/20 18:00 09/05/20 06:00 Furosemide 20 Mg/2 Ml Inj IV 20 mg BID@0600,1800 [facility] Administration Heparin Sodium (Porcine) 5,000 unit 09/04/20 10:00 09/04/20 21:40 Heparin 5,000 Unit/1 Ml Vial SUB-Q Not Given Q12HR [facility] Ibuprofen 600 mg 09/04/20 11:14 Ibuprofen 600 Mg Tab PO Q8H PRN Pain, Moderate (4-6) Montelukast Sodium 10 mg 09/03/20 18:00 09/04/20 18:21 Montelukast 10 Mg Tab PO 10 mg QPM [facility] Administration Ondansetron HCl 4 mg 09/03/20 11:35 Ondansetron 4 Mg/2 Ml Inj IV Q8H PRN Nausea And Vomiting Sodium Chloride 10 ml 09/03/20 22:00 09/05/20 00:38 Sodium Chloride 0.9% 10 Ml Flush Syringe IV 10 ml BID [facility] Administration Sodium Chloride 10 ml 09/03/20 11:35 Sodium Chloride 0.9% 10 Ml Flush Syringe IV PRN PRN LINE FLUSH
[2020-09-05] MEDS: CETIRIZINE 10 MG TAB PO SCH (11:04)
[2020-09-05] MEDS: FLUTICASONE PROPIONATE NASAL SPRAY 16 GM NS SCH (11:07)
[2020-09-05] MEDS: CYCLOBENZAPRINE 10 MG TAB PO PRN (11:13)
--- NOTE | 2020-09-05 15:07 | Progress Note ---
Assessment and Plan Heart failure preserved ejection fraction * Patient is currently chest pain-free with no cardiac symptoms. EKG reviewed: Sinus tach 113 with no acute ischemic changes. Troponin is negative x2. AMI ruled out. Continue to trend CE * Patient is nearing euvolemia. Maintain strict I/O's. Convert Lasix to 40 mg p.o. daily * Echocardiogram reviewed (09/04/2020): LVEF is 55 to 60%. Left ventricle is normal size. LV SF is normal. Mild diastolic dysfunction is present (impaired relaxation pattern). RV SF is normal. No valvular abnormalities. Acute hypoxic respiratory failure with history of asthma * Currently maintaining O2 sats on O2 support 5 L/min via nasal cannula. * Patient has MDI at bedside. * D-dimer is elevated. Management per primary team Elevated liver indices * Patient reports significant use of NSAIDs over the last year since her knee replacement. Labs show elevated liver indices. Avoid hepatotoxic agents. DVT prophylaxis * Heparin SQ Patient is nearing euvolemia. Echocardiogram shows no cardiomyopathy. No further plans for inpatient ischemic evaluation. We will follow. Patient should follow-up with Dr. Yaron Cleary, [facility] heart specialists within 1 to 2 weeks of discharge. #[id number] This patient was seen in conjunction with Dr. Yaron Cleary who agrees with this assessment and plan of care - Patient Problems (1) Acute respiratory failure Current Visit: Yes Status: Acute Qualifiers: Respiratory failure complication: hypoxia Qualified Code(s): J96.01 - Acute respiratory failure with hypoxia (2) DVT prophylaxis Current Visit: Yes Status: Acute (3) New onset of congestive heart failure Current Visit: Yes Status: Acute (4) Asthma Current Visit: Yes Status: Chronic (5) Total knee replacement status Current Visit: Yes Status: Chronic Subjective Date of service: 09/05/20 Principal diagnosis: CHF exacerbation Interval history: Patient resting comfortably in bed. No shortness of breath or chest pain overnight Telemetry reviewed: Sinus rhythm 90. No events Objective Last Vital Signs Temp 99.4 F 09/05/20 06:45 Pulse 99 H 09/05/20 10:00 Resp 18 09/05/20 09:00 BP 113/87 09/05/20 06:45 Pulse Ox 95 09/05/20 09:18 - Physical Examination General: Appears Well HEENT: Positive: PERRL, Normocephaly, Mucus Membranes Moist Neck: Positive: neck supple, trachea midline Cardiac: Positive: Reg Rate and Rhythm, S1/S2 Lungs: Positive: Normal Exam, Normal Breath Sounds Neuro: Positive: Grossly Intact Abdomen: Positive: Unremarkable, Soft Skin: Negative: Rash, Wound Extremities: Present: upper extr. pulses, lower extr. pulses, +1 Edema - Labs and Meds CBC 09/05/20 Range/Units 04:19 WBC 4.6 (4.5-11.0) K/mm3 RBC 4.78 (3.65-5.03) M/mm3 Hgb 14.0 (10.1-14.3) gm/dl Hct 43.9 H (30.3-42.9) % Plt Count 207 (140-440) K/mm3 Comprehensive Metabolic Panel 09/05/20 Range/Units 04:19 Sodium 138 (137-145) mmol/L Potassium 4.3 (3.6-5.0) mmol/L Chloride 95.2 L (98-107) mmol/L Carbon Dioxide 33 H (22-30) mmol/L BUN 10 (7-17) mg/dL Creatinine 0.5 L (0.6-1.2) mg/dL Glucose 116 H (65-100) mg/dL Calcium 8.8 (8.4-10.2) mg/dL - Imaging and Cardiology EKG: report reviewed, image reviewed Echo: report reviewed - Telemetry EKG Rhythm: Sinus Rhythm - EKG Sinus rhythms and dysrhythmias: sinus rhythm
[2020-09-05] MEDS ORDERED: FUROSEMIDE 20 MG/2 ML INJ IV NR (18:00)
[2020-09-05] MEDS: MONTELUKAST 10 MG TAB PO SCH (18:30)
[2020-09-05] MEDS: ACETAMINOPHEN W/CODEINE 300-30 MG TAB PO PRN (18:32)
[2020-09-06] MEDS: ACETAMINOPHEN W/CODEINE 300-30 MG TAB PO PRN ×4 (05:19→23:22)
[2020-09-06] MEDS: FUROSEMIDE 40 MG TAB PO SCH (05:19)
[2020-09-06 05:28] LABS: Blood Urea Nitrogen 8 mg/dL (7-17); Calcium 8.5 mg/dL (8.4-10.2); Hemolysis Index 8
[2020-09-06 05:37] LABS: BUN/Creatinine Ratio 13
[2020-09-06] MEDS: HEPARIN 5,000 UNIT/1 ML VIAL SUB-Q SCH ×2 (09:04→21:39)
[2020-09-06] MEDS: CETIRIZINE 10 MG TAB PO SCH (09:04)
[2020-09-06] MEDS: FLUTICASONE PROPIONATE NASAL SPRAY 16 GM NS SCH (09:31)
[2020-09-06] MEDS ORDERED: FUROSEMIDE 20 MG TAB PO SCH (10:00)
--- NOTE | 2020-09-06 11:12 | Progress Note ---
Assessment and Plan Assessment and plan: --New onset of diastolic congestive heart failure Current Visit: Yes Status: Acute Heart failure with preserved LVEF EF 55 to 60%, acute diastolic dysfunction Continue antifailure medications -- Acute hypoxic respiratory failure Current Visit: Yes Status: Acute Requiring supplemental oxygen, Titrate O2 sats to more than 90% Due to diastolic dysfunction/heart failure with preserved EF Continue antifailure medications Partly due to bronchial asthma Continue nebulizer therapy, chest x-ray, supportive care. --History of bronchial asthma; Current Visit: Yes Status: Acute Continue bronchodilators, steroids, oxygen and supportive care Patient will follow with PMD/pulmonary upon discharge --Elevated D-dimers Current Visit: Yes Status: Acute . CTA chest negative for PE Check lower extremity venous Doppler 08/28/2020 Negative for DVT ,elevate the limb --Edema lower extremities; Current Visit: Yes Status: Acute secondary to CHF with preserved LV function Elevate the limb, diuretic, low-sodium diet Fluid restriction, supportive care Cardiology following --DVT prophylaxis Current Visit: Yes Status: Acute . Plan to address problem: Heparin subcu History Interval history: I seen and examined the patient at the bedside this morning Patient complains of some mild cough Patient feels better We will check for home O2 evaluation Vital signs noted Hospitalist Physical - Constitutional Vitals: Temp Pulse Resp BP Pulse Ox 100.2 F H 81 17 116/72 95 09/06/20 04:09 09/06/20 08:59 09/06/20 11:00 09/06/20 08:59 09/06/20 10:00 General appearance: Present: no acute distress, well-nourished - EENT Eyes: Present: PERRL, EOM intact - Neck Neck: Present: supple, normal ROM - Respiratory Respiratory effort: normal Respiratory: bilateral: diminished, negative: rales, rhonchi, wheezing - Cardiovascular Rhythm: regular Heart Sounds: Present: S1 & S2 - Extremities Extremities: no ischemia, No edema - Abdominal General gastrointestinal: soft, non-tender, non-distended, normal bowel sounds - Integumentary Integumentary: Present: clear, warm - Psychiatric Psychiatric: appropriate mood/affect, cooperative - Neurologic Neurologic: CNII-XII intact, moves all extremities HEART Score - HEART Score Troponin: Troponin T < 0.010 ng/mL (0.00-0.029) 09/05/20 04:19 Results - Labs CBC & Chem 7: 09/05/20 04:19 09/06/20 04:16 Labs: Laboratory Last Values WBC 4.6 K/mm3 (4.5-11.0) 09/05/20 04:19 RBC 4.78 M/mm3 (3.65-5.03) 09/05/20 04:19 Hgb 14.0 gm/dl (10.1-14.3) 09/05/20 04:19 Hct 43.9 % (30.3-42.9) H 09/05/20 04:19 MCV 92 fl (79-97) 09/05/20 04:19 MCH 29 pg (28-32) 09/05/20 04:19 MCHC 32 % (30-34) 09/05/20 04:19 RDW 16.6 % (13.2-15.2) H 09/05/20 04:19 Plt Count 207 K/mm3 (140-440) 09/05/20 04:19 Lymph % (Auto) 22.8 % (13.4-35.0) 09/03/20 08:55 Cache % (Auto) 13.7 % (0.0-7.3) H 09/03/20 08:55 Eos % (Auto) 1.7 % (0.0-4.3) 09/03/20 08:55 Baso % (Auto) 0.9 % (0.0-1.8) 09/03/20 08:55 Lymph # (Auto) 1.3 K/mm3 (1.2-5.4) 09/03/20 08:55 [place] # (Auto) 0.8 K/mm3 (0.0-0.8) 09/03/20 08:55 Eos # (Auto) 0.1 K/mm3 (0.0-0.4) 09/03/20 08:55 Baso # (Auto) 0.0 K/mm3 (0.0-0.1) 09/03/20 08:55 Seg Neutrophils % 60.9 % (40.0-70.0) 09/03/20 08:55 Seg Neutrophils # 3.4 K/mm3 (1.8-7.7) 09/03/20 08:55 PT 13.8 Sec. (12.2-14.9) 09/03/20 08:55 INR 1.00 (0.87-1.13) 09/03/20 08:55 APTT 25.4 Sec. (24.2-36.6) 09/03/20 08:55 D-Dimer 566.84 ng/mlDDU (0-234) H 09/04/20 13:42 Sodium 134 mmol/L (137-145) L 09/06/20 04:16 Potassium 4.2 mmol/L (3.6-5.0) 09/06/20 04:16 Chloride 92.0 mmol/L (98-107) L 09/06/20 04:16 Carbon Dioxide 36 mmol/L (22-30) H 09/06/20 04:16 Anion Gap 10 mmol/L 09/06/20 04:16 BUN 8 mg/dL (7-17) 09/06/20 04:16 Creatinine 0.6 mg/dL (0.6-1.2) 09/06/20 04:16 Estimated GFR > 60 ml/min 09/06/20 04:16 BUN/Creatinine Ratio 13 % 09/06/20 04:16 Glucose 114 mg/dL (65-100) H 09/06/20 04:16 Calcium 8.5 mg/dL (8.4-10.2) 09/06/20 04:16 Magnesium 1.80 mg/dL (1.7-2.3) 09/06/20 04:16 Total Bilirubin 0.70 mg/dL (0.1-1.2) 09/03/20 08:55 AST 62 units/L (5-40) H 09/03/20 08:55 ALT 144 units/L (7-56) H 09/03/20 08:55 Alkaline Phosphatase 117 units/L (35-129) 09/03/20 08:55 Troponin T < 0.010 ng/mL (0.00-0.029) 09/05/20 04:19 NT-Pro-B Natriuret Pep 2754 pg/mL (0-900) H 09/03/20 08:55 Total Protein 6.5 g/dL (6.3-8.2) 09/03/20 08:55 Albumin 4.3 g/dL (3.9-5) 09/03/20 08:55 Albumin/Globulin Ratio 2.0 % 09/03/20 08:55 TSH 1.510 mlU/mL (0.270-4.200) 09/03/20 08:55 Free T4 1.33 ng/dL (0.76-1.46) 09/03/20 08:55 Urine Color Yellow (Yellow) 09/03/20 Unknown Urine Turbidity Clear (Clear) 09/03/20 Unknown Urine pH 5.0 (5.0-7.0) 09/03/20 Unknown Ur Specific [place] 1.018 (1.003-1.030) 09/03/20 Unknown Urine Protein <15 mg/dl mg/dL (Negative) 09/03/20 Unknown Urine Glucose (UA) Neg mg/dL (Negative) 09/03/20 Unknown Urine Ketones Neg mg/dL (Negative) 09/03/20 Unknown Urine Blood Neg (Negative) 09/03/20 Unknown Urine Nitrite Neg (Negative) 09/03/20 Unknown Urine Bilirubin Neg (Negative) 09/03/20 Unknown Urine Urobilinogen < 2.0 mg/dL (<2.0) 09/03/20 Unknown Ur Leukocyte Esterase Neg (Negative) 09/03/20 Unknown Urine WBC (Auto) 1.0 /HPF (0.0-6.0) 09/03/20 Unknown Urine RBC (Auto) < 1.0 /HPF (0.0-6.0) 09/03/20 Unknown U Epithel Cells (Auto) < 1.0 /HPF (0-13.0) 09/03/20 Unknown [place]/IV: Voiding Method Toilet Active Medications - Current Medications Current Medications: Generic Name Dose Route Start Last Admin Trade Name Freq PRN Reason Stop Dose Admin Acetaminophen 650 mg 09/03/20 11:35 09/05/20 11:13 Acetaminophen 325 Mg Tab PO 650 mg Q4H PRN Administration Pain MILD(1-3)/Fever >100.5/WAGNER Acetaminophen/Codeine Phosphate 1 tab 09/04/20 11:13 09/06/20 11:00 Acetaminophen W/Codeine 300-30 Mg Tab PO 1 tab Q6H PRN Administration Pain, Mild (1-3) Albuterol 2.5 mg 09/03/20 11:35 Albuterol 2.5 Mg/3 Ml Nebu IH Q4H PRN Shortness Of Breath Cetirizine HCl 10 mg 09/04/20 10:00 09/06/20 09:04 Cetirizine 10 Mg Tab PO 10 mg DAILY GEORGE Administration Cyclobenzaprine HCl 10 mg 09/03/20 11:37 09/05/20 11:13 Cyclobenzaprine 10 Mg Tab PO 10 mg TID PRN Administration Muscle Spasm Fluticasone Propionate 50 mcg 09/03/20 13:00 09/06/20 09:31 Fluticasone Propionate Nasal [place] 16 Gm NS 50 mcg QDAY GEORGE Administration Furosemide 40 mg 09/06/20 06:00 09/06/20 05:19 Furosemide 40 Mg Tab PO 40 mg DAILY@0600 GEORGE Administration Heparin Sodium (Porcine) 5,000 unit 09/04/20 10:00 09/06/20 09:04 Heparin 5,000 Unit/1 Ml Vial SUB-Q 5,000 unit Q12HR GEORGE Administration Ibuprofen 600 mg 09/04/20 11:14 Ibuprofen 600 Mg Tab PO Q8H PRN Pain, Moderate (4-6) Montelukast Sodium 10 mg 09/03/20 18:00 09/05/20 18:30 Montelukast 10 Mg Tab PO 10 mg QPM GEORGE Administration Ondansetron HCl 4 mg 09/03/20 11:35 Ondansetron 4 Mg/2 Ml Inj IV Q8H PRN Nausea And Vomiting Sodium Chloride 10 ml 09/03/20 22:00 09/06/20 09:05 Sodium Chloride 0.9% 10 Ml Flush Syringe IV 10 ml BID GEORGE Administration Sodium Chloride 10 ml 09/03/20 11:35 Sodium Chloride 0.9% 10 Ml Flush Syringe IV PRN PRN LINE FLUSH
[2020-09-06] MEDS ORDERED: BENZONATATE 100 MG CAP PO PRN (11:26)
--- NOTE | 2020-09-06 12:20 | Progress Note ---
Assessment and Plan Heart failure preserved ejection fraction * Patient is currently chest pain-free with no cardiac symptoms. EKG reviewed: Sinus tach 113 with no acute ischemic changes. Troponin is negative x2. AMI ruled out. Continue to trend CE * Patient is nearing euvolemia. Maintain strict I/O's. Continue Lasix to 40 mg p.o. daily * Echocardiogram reviewed (09/04/2020): LVEF is 55 to 60%. Left ventricle is normal size. LV SF is normal. Mild diastolic dysfunction is present (impaired relaxation pattern). RV SF is normal. No valvular abnormalities. Acute hypoxic respiratory failure with history of asthma * Currently maintaining O2 sats on O2 support 5 L/min via nasal cannula. * Patient has MDI at bedside. * D-dimer is elevated. CTA chest is negative for PTE. BLE duplex is negative for DVT Elevated liver indices * Patient reports significant use of NSAIDs over the last year since her knee replacement. Labs show elevated liver indices. Avoid hepatotoxic agents. DVT prophylaxis * Heparin SQ Patient is nearing euvolemia. No further plans for inpatient ischemic evaluation. Patient was able to walk the floor without supplemental O2 this a.m. without shortness of breath. Continue to wean O2. Patient may discharge from cardiology standpoint once weaned off supplemental oxygen. Will follow on as needed basis. Patient should follow-up with Dr. Yaron Cleary, [facility] heart specialists within 1 to 2 weeks of discharge. #[id number] This patient was seen in conjunction with Dr. Kim who agrees with this assessment and plan of care - Patient Problems (1) Acute respiratory failure Current Visit: Yes Status: Acute Qualifiers: Respiratory failure complication: hypoxia Qualified Code(s): J96.01 - Acute respiratory failure with hypoxia (2) DVT prophylaxis Current Visit: Yes Status: Acute (3) New onset of congestive heart failure Current Visit: Yes Status: Acute (4) Asthma Current Visit: Yes Status: Chronic (5) Total knee replacement status Current Visit: Yes Status: Chronic Subjective Date of service: 09/06/20 Principal diagnosis: CHF exacerbation Interval history: Patient resting comfortably in bed. No shortness of breath or chest pain overnight. Telemetry reviewed: Sinus rhythm 94. No events Objective Last Vital Signs Temp 100.2 F H 09/06/20 04:09 Pulse 81 09/06/20 08:59 Resp 17 09/06/20 11:00 BP 116/72 09/06/20 08:59 Pulse Ox 95 09/06/20 10:00 - Physical Examination General: Appears Well HEENT: Positive: PERRL, Normocephaly, Mucus Membranes Moist Neck: Positive: neck supple, trachea midline Cardiac: Positive: Reg Rate and Rhythm, S1/S2 Lungs: Positive: Normal Exam, Normal Breath Sounds Neuro: Positive: Grossly Intact Abdomen: Positive: Unremarkable, Soft Skin: Negative: Rash, Wound Extremities: Present: upper extr. pulses, lower extr. pulses, +1 Edema - Labs and Meds Comprehensive Metabolic Panel 09/06/20 Range/Units 04:16 Sodium 134 L (137-145) mmol/L Potassium 4.2 (3.6-5.0) mmol/L Chloride 92.0 L (98-107) mmol/L Carbon Dioxide 36 H (22-30) mmol/L BUN 8 (7-17) mg/dL Creatinine 0.6 (0.6-1.2) mg/dL Glucose 114 H (65-100) mg/dL Calcium 8.5 (8.4-10.2) mg/dL - Imaging and Cardiology EKG: report reviewed, image reviewed Echo: report reviewed - Telemetry EKG Rhythm: Sinus Rhythm - EKG Sinus rhythms and dysrhythmias: sinus rhythm
[2020-09-06] MEDS: MONTELUKAST 10 MG TAB PO SCH (17:16)
[2020-09-06] MEDS: guaiFENesin DM 200/20 MG ORAL LIQD 10 ML PO PRN ×2 (17:35→21:47)
[2020-09-07] MEDS: FUROSEMIDE 40 MG TAB PO SCH (05:49)
[2020-09-07] MEDS: HEPARIN 5,000 UNIT/1 ML VIAL SUB-Q SCH (09:23)
[2020-09-07] MEDS: CETIRIZINE 10 MG TAB PO SCH (09:23)
[2020-09-07] MEDS: guaiFENesin DM 200/20 MG ORAL LIQD 10 ML PO PRN ×2 (09:23→15:05)
[2020-09-07] MEDS: FLUTICASONE PROPIONATE NASAL SPRAY 16 GM NS SCH (09:23)
[2020-09-07] MEDS: ACETAMINOPHEN W/CODEINE 300-30 MG TAB PO PRN ×2 (09:23→15:05)
--- NOTE | 2020-09-07 10:21 | Discharge Summary ---
Providers - Providers Date of Admission: 09/03/20 14:15 Date of discharge: 09/07/20 Attending physician: CYRIL MADERA 09/03/20 11:35 Consult to Physician [CONS] Routine Comment: Consulting Provider: YASH YEN Physician Instructions: Reason For Exam: chf Primary care physician: TANK OPERATOR Hospitalization Reason for admission: Acute diastolic CHF/acute hypoxic respiratory failure Condition: Serious Pertinent studies: Chest x-ray CTA chest echocardiogram Hospital course: 55 YO Female with Asthma, OA was admitted through emergency room with history of bilateral lower extremity swelling for a few days". Patient states that she has experienced lower extremity edema, generalized weakness, decreased exercise tolerance, shortness of breath, orthopnea, paroxysmal nocturnal dyspnea over the past 1 month with progressively worsening symptoms over last few days prior to admission. Patient was initially evaluated patient is noted to be in acute diastolic congestive heart failure, acute hypoxic respiratory failure requiring supplemental oxygen. Patient was evaluated by cardiology medications optimized, patient improved and output monitored, electrolyte imbalances corrected Patient was evaluated by PT OT, recommended therapy Today patient is comfortable no new complaints vital signs stable physical examination is unremarkable. Cleared by consultants for discharge and follow-up in the office for further evaluation management Patient is hemodynamically and clinically stable at discharge. Discharge diagnosis; --Acute diastolic congestive heart failure Heart failure with preserved EF/LV EF 55 to 60% Continue antifailure medications follow cardiology --Acute hypoxic respiratory failure; requiring supplemental oxygen Home O2 evaluation done, patient requires 2 to 3 L nasal cannula oxygen as needed Case management has set up oxygen --History of bronchial asthma; stable on medications --Elevated D-dimers; negative PE, negative DVT --Lower extremity edema; Due to CHF exacerbation Input output monitoring, low-sodium Fluid restriction Follow cardiology --DVT prophylaxis; subcu heparin Patient symptoms significantly improved Cleared by consultants for discharge And follow-up with primary care physician and quality systems manager per schedule Stable at discharge Disposition: DC-01 TO HOME OR SELFCARE Final Discharge Diagnosis (Prints w/discharge instructions): Acute hypoxic respiratory failure. Acute diastolic congestive heart failure. Home oxygen. History of bronchial asthma. Elevated D-dimers negative PE. Lower extremity edema Time spent for discharge: 35 min Core Measure Documentation - Palliative Care Palliative Care/ Comfort Measures: Not Applicable - Core Measures Any of the following diagnoses?: none Exam - Constitutional Vitals: Temp Pulse Resp BP Pulse Ox 98.8 F 82 18 105/74 96 09/07/20 07:25 09/07/20 08:11 09/07/20 09:23 09/07/20 07:25 09/07/20 08:11 General appearance: Present: no acute distress, well-nourished - EENT Eyes: Present: PERRL, EOM intact - Neck Neck: Present: supple, normal ROM - Respiratory Respiratory effort: normal Respiratory: bilateral: diminished, negative: rales, rhonchi, wheezing - Cardiovascular Rhythm: regular Heart Sounds: Present: S1 & S2 - Extremities Extremities: no ischemia, No edema - Abdominal General gastrointestinal: Present: soft, non-tender, non-distended, normal bowel sounds - Integumentary Integumentary: Present: clear, warm - Musculoskeletal Musculoskeletal: strength equal bilaterally, generalized weakness - Psychiatric Psychiatric: appropriate mood/affect, cooperative - Neurologic Neurologic: CNII-XII intact, moves all extremities Plan Activity: advance as tolerated, fall precautions Diet: low salt, other (Cardiac diet) Special Instructions: home oxygen via (Nasal cannula 2 to 3 L) Durable Medical Equipment Needed Upon Discharge: Oxygen (2 to 3 L nasal cannula oxygen) Additional Instructions: Advised home oxygen 2 to 3 L via nasal cannula as needed. Advised to follow primary care physician in private [employer] structurer per schedule. If you have worsening symptoms contact MD or go to emergency room as needed. Advised 4 days work excuse from 09/08/2020 till 09/11/2020. Check with primary care physician for further instructions Follow up with: RHETT TAMEZ MD [Primary Care Provider] - 7 Days RONI YE MD [Staff Physician] - 14 Days Forms: Work/School Release Form Prescriptions: guaiFENesin DM [Guaifenesin Dm Syrup] 10 ml PO Q4H PRN 14 Days #1 bottle PRN Reason: Cough Furosemide [Lasix] 20 mg PO QDAY #30 tablet Prednisone [predniSONE 10 mg (6-Day Pack, 21 Tabs)] 10 mg PO .TAPER #1 tab.ds.pk Acetaminophen/Codeine [Tylenol /Codeine # 3 tab] 1 tab PO Q6H PRN #8 tablet PRN Reason: Pain, Mild (1-3) Azithromycin [Zithromax Z-FILIPPO] 0 mg PO DAILY #1 tab
[2020-09-07 12:00] VITALS: BP 114/73
== END 2020-09-07 16:55 | disposition home or self-care (01) | DRG 291 ==
LOC: ED 08:38 → 4A 14:15
PROVIDERS: ADMIT Internal Medicine; ATTEND Internal Medicine
DX: I50.31 Acute diastolic (congestive) heart failure (principal); J96.01 Acute respiratory failure with hypoxia; J45.901 Unspecified asthma with (acute) exacerbation; J43.9 Emphysema, unspecified; M19.90 Unspecified osteoarthritis, unspecified site; Z88.5 Allergy status to narcotic agent; Z79.899 Other long term (current) drug therapy; Z99.81 Dependence on supplemental oxygen; Z82.49 Family history of ischemic heart disease and other diseases of the circulatory system; Z83.3 Family history of diabetes mellitus
CPT/HCPCS: 36415; 71045; 71275; 80048; 80053; 81001; 83735; 83880; 84439; 84443; 84484; 85025; 85027; 85379; 85610; 85730; 93005; 93306; 94640; 96374; G0378; J1170; J1644; J1940; Q9967

== ENCOUNTER 2021-04-16 11:25 | Inpatient (IN) | payer OTHER ==
[~2021-04-16 11:25] MED LIST: SODIUM CHLORIDE 0.9% 1000 ML 1,000 ML IV SCH
[2021-04-16] MEDS ORDERED: IPRATROPIUM 0.02% NEBU 2.5 ML IH ONE (12:16)
[2021-04-16] MEDS ORDERED: ALBUTEROL 2.5 MG/3 ML NEBU IH ONE (12:16)
--- NOTE | 2021-04-16 12:24 | Emergency Department Report ---
HPI - General Chief Complaint: Adult Asthma Time Seen by Provider: 04/16/21 12:02 - HPI HPI: Room 17 Patient is a 56-year-old female present with chief complaint of "my asthma." Patient states for the past 3 days she has felt short of breath feeling as though it was her asthma. Patient is to call productive of yellow sputum. Patient admits to rhinorrhea but denies history of fever. Patient states she did receive the [place] Covid vaccination 08/2020. Patient states she is not on home O2 although at one point she was. The patient states she turned in her oxygen tank but never got a second one. Patient was reportedly hypoxic to 87/88% on room air in the ED. patient denies chest pain ED Past Medical Hx - Past Medical History Hx Congestive Heart Failure: No (?) Hx Asthma: Yes - Surgical History Additional Surgical History: ABD SURGERY (MASS REMOVAL) FROM DR ASCENCIO - Family History Family history: no significant - Social History Smoking Status: Former Smoker (None x4 months) Substance Use Type: None (Denies illicit drug use) - Medications Home Medications: Home Medications Medication Instructions Recorded Confirmed Last Taken Type Ibuprofen [Motrin 600 MG tab] 600 mg PO Q8H PRN #40 tablet 02/13/14 09/04/20 3 Days Ago Rx ~09/01/20 Albuterol Mdi (or & Nicu Only) 2 puff IH QID PRN #1 inhalation 05/11/14 09/04/20 Unknown Rx [ProAir HFA Inhaler] Cetirizine HCl [Zyrtec 10mg tab] 10 mg PO DAILY #30 tablet 07/10/20 09/04/20 2 Days Ago Rx ~09/02/20 Fluticasone [Flonase] 1 spray NS QDAY #1 bottle 07/10/20 09/04/20 2 Days Ago Rx ~09/02/20 Montelukast [Singulair] 10 mg PO QPM #30 tablet 07/10/20 09/04/20 2 Days Ago Rx ~09/02/20 Acetaminophen/Codeine [Tylenol 1 tab PO Q6H PRN #8 tablet 09/07/20 Unknown Rx /Codeine # 3 tab] Azithromycin [Zithromax Z-FILIPPO] 0 mg PO DAILY #1 tab 09/07/20 Unknown Rx Furosemide [Lasix] 20 mg PO QDAY #30 tablet 09/07/20 Unknown Rx Prednisone [predniSONE 10 mg 10 mg PO .TAPER #1 tab.ds.pk 09/07/20 Unknown Rx (6-Day Pack, 21 Tabs)] guaiFENesin DM [Guaifenesin Dm 10 ml PO Q4H PRN 14 Days #1 bottle 09/07/20 Unknown Rx Syrup] ED Review of Systems ROS: Stated complaint: SHORTNESS OF BREATH Other details as noted in HPI Constitutional: denies: fever Eyes: denies: eye pain ENT: congestion. denies: throat pain Respiratory: cough, shortness of breath, wheezing Cardiovascular: denies: chest pain Endocrine: no symptoms reported Gastrointestinal: denies: abdominal pain Genitourinary: denies: dysuria Musculoskeletal: denies: back pain Neurological: denies: headache Physical Exam - Physical Exam Physical Exam: GENERAL: The patient is well-developed well-nourished female lying on stretcher not appearing to be in acute distress. [] HEENT: Normocephalic. Atraumatic. Extraocular motions are intact. Patient has moist mucous membranes. NECK: Supple. Trachea midline CHEST/LUNGS: Diminished with occasional faint expiratory wheezing. There is no respiratory distress noted. HEART/CARDIOVASCULAR: Regular. There is no tachycardia. There is no gallop rub or murmur. ABDOMEN: Abdomen is soft, nontender. Patient has normal bowel sounds. There is no abdominal distention. SKIN: There is no rash. There is no edema. There is no diaphoresis. NEURO: The patient is awake, alert, and oriented. The patient is cooperative. The patient has no focal neurologic deficits. The patient has normal speech. GCS 15 MUSCULOSKELETAL: There is no evidence of acute injury. ED Course - Reevaluation(s) Reevaluation #1: 04/16/21 13:50 Patient still requiring supplemental O2 after neb. Will admit ED Medical Decision Making - Lab Data Result diagrams: 04/16/21 12:39 04/16/21 12:39 - Radiology Data Radiology results: report reviewed (Chest x-ray), image reviewed (Chest x-ray) interpreted by me: Chest x-ray-no definite focal infiltrates, no pneumothorax [facility] [address] [place] [address] XRay Report Signed Patient: MARY TIDWELL MR#: [id number] : 1965 Acct:[id number] Age/Sex: 56 / F ADM Date: 04/16/21 Loc: ED Attending Dr: Ordering Physician: LIDIA JUNE MD Date of Service: 04/16/21 Procedure(s): XR chest 1V ap Accession Number(s): [id number] cc: LIDIA JUNE MD Fluoro Time In Minutes: XR chest 1V ap INDICATION / CLINICAL INFORMATION: Shortness of breath, hypoxia, productive cough. COMPARISON: 09/03/2020 FINDINGS: SUPPORT DEVICES: None. HEART /PULMONARY VASCULATURE: No significant abnormality. LUNGS / PLEURA: No acute pulmonary or pleural abnormality. IMPRESSION: 1. No acute findings. Signer Name: Raj Danielson MD Signed: 04/16/2021 12:39 PM Workstation Name: [id number] Transcribed By: MARYURI Dictated By: RAJ DANIELSON MD Electronically Authenticated By: RAJ DANIELSON MD Signed Date/Time: 04/16/21 1239 DD/ 1238 TD/TT: Print Cancel - Differential Diagnosis Pneumonia, bronchitis, COPD, Covid, Critical care attestation.: If time is entered above; I have spent that time in minutes in the direct care of this critically ill patient, excluding procedure time. ED Disposition Clinical Impression: Shortness of breath, Hypoxia, Cough, Asthma exacerbation Disposition: ADMITTED INPATIENT Is pt being admited?: Yes Does the pt Need Aspirin: Yes Condition: Fair Referrals: PRIMARY CARE, [Primary Care Provider] - 3-5 Days Time of Disposition: 13:48 (Hospitalist called (Dr. Brown))
[2021-04-16] MEDS ORDERED: methylPREDNISolone Sod Succinate 125 MG/2 ML INJ IV ONE (12:42)
[2021-04-16] MEDS ORDERED: MAGNESIUM SULFATE 2 GM/50 ML BAG IV ONE (12:42)
--- NOTE | 2021-04-16 12:48 | XRay Report ---
XR chest 1V ap INDICATION / CLINICAL INFORMATION: Shortness of breath, hypoxia, productive cough. COMPARISON: 09/03/2020 FINDINGS: SUPPORT DEVICES: None. HEART /PULMONARY VASCULATURE: No significant abnormality. LUNGS / PLEURA: No acute pulmonary or pleural abnormality. IMPRESSION: 1. No acute findings. Signer Name: Jayesh Danielson MD Signed: 04/16/2021 12:39 PM Workstation Name: [id number]
[2021-04-16 13:25] LABS: Basophils % (Auto) 0.4 % (0.0-1.8); Eosinophils % (Auto) 0.1 % (0.0-4.3); Hematocrit 49.6 % (30.3-42.9); Hemoglobin 15.7 gm/dl (10.1-14.3); Lymphocytes # (Auto) 0.9 K/mm3 (1.2-5.4); Lymphocytes % (Auto) 13.1 % (13.4-35.0); Mean Corpuscular HGB Conc 32 % (30-34); Mean Corpuscular Volume 92 fl (79-97); Monocytes # (Auto) 1.1 K/mm3 (0.0-0.8); Monocytes % (Auto) 15.2 % (0.0-7.3); Platelet Count 179 K/mm3 (140-440); Red Blood Count 5.39 M/mm3 (3.65-5.03); Red Cell Distribution Width 14.5 % (13.2-15.2)
[2021-04-16 13:44] LABS: Blood Urea Nitrogen 7 mg/dL (7-17); Calcium 9.4 mg/dL (8.4-10.2); Hemolysis Index 3
[2021-04-16 13:46] LABS: BUN/Creatinine Ratio 14
[2021-04-16] MEDS ORDERED: ACETAMINOPHEN 325 MG TAB PO PRN (18:49)
[2021-04-16] MEDS ORDERED: ONDANSETRON 4 MG/2 ML INJ IV PRN (18:49)
[2021-04-16] MEDS ORDERED: HYDROmorphone 1 MG/1 ML INJ IV PRN (18:54)
[2021-04-16] MEDS ORDERED: oxyCODONE /ACETAMINOPHEN 5-325MG TAB PO PRN (18:54)
[2021-04-16] MEDS ORDERED: IPRATROPIUM/ALBUTEROL SULFATE 3 ML AMPUL.NEB IH PRN (19:12)
[2021-04-16] MEDS ORDERED: ALBUTEROL 2.5 MG/3 ML NEBU IH PRN (19:27)
[2021-04-16] MEDS: IPRATROPIUM/ALBUTEROL SULFATE 3 ML AMPUL.NEB IH SCH (22:00)
[2021-04-16] MEDS: methylPREDNISolone Sod Succinate 125 MG/2 ML INJ IV SCH (22:00)
[2021-04-16] MEDS: HEPARIN 5,000 UNIT/1 ML VIAL SUB-Q SCH (22:45)
[2021-04-17 05:22] LABS: Basophils % (Auto) 0.1 % (0.0-1.8); Lymphocytes # (Auto) 0.4 K/mm3 (1.2-5.4); Lymphocytes % (Auto) 6.9 % (13.4-35.0); Mean Corpuscular HGB Conc 31 % (30-34); Mean Corpuscular Volume 93 fl (79-97); Monocytes # (Auto) 0.2 K/mm3 (0.0-0.8); Monocytes % (Auto) 3.6 % (0.0-7.3); Platelet Count 170 K/mm3 (140-440); Red Blood Count 5.17 M/mm3 (3.65-5.03); Red Cell Distribution Width 14.4 % (13.2-15.2)
[2021-04-17 05:38] LABS: Hematocrit 47.9 % (30.3-42.9); Hemoglobin 14.8 gm/dl (10.1-14.3)
[2021-04-17 05:50] LABS: Alanine Aminotransferase 19 units/L (7-56); Albumin 4.1 g/dL (3.9-5); Blood Urea Nitrogen 6 mg/dL (7-17); Calcium 9.3 mg/dL (8.4-10.2); Hemolysis Index 2
[2021-04-17] MEDS: methylPREDNISolone Sod Succinate 125 MG/2 ML INJ IV SCH ×3 (05:57→23:59)
[2021-04-17 06:01] LABS: BUN/Creatinine Ratio 15
--- NOTE | 2021-04-17 07:27 | History and Physical Report ---
History of Present Illness Date of examination: 04/16/21 Date of admission: 04/16/21 14:00 Chief complaint: Shortness of breath and wheezing for 1 day History of present illness: 56-year-old female with history of wheezing for 3 days. Patient also having cough productive yellow sputum. Patient has not inhalers. No fever or chills. Patient had Covid vaccine will consult August 2020. Patient is not on home oxygen. Patient was hypoxic to 87/88% on room air in the emergency room. Patient was given multiple breathing treatments in the emergency room but continued to desaturate without oxygen. Patient wanted to sign out AMA but became hypoxic and then was convinced to stay back. - Past Medical History --Asthma: Yes - Surgical History Additional Surgical History: ABD SURGERY (MASS REMOVAL) FROM DR ASCENCIO - Family History Family history: no significant - Social History Smoking Status: Former Smoker (None x4 months) Substance Use Type: None (Denies illicit drug use) Review of Systems ROS: Stated complaint: SHORTNESS OF BREATH Other details as noted in HPI Constitutional: denies: fever Eyes: denies: eye pain ENT: congestion. denies: throat pain Respiratory: cough, shortness of breath, wheezing Cardiovascular: denies: chest pain Endocrine: no symptoms reported Gastrointestinal: denies: abdominal pain Genitourinary: denies: dysuria Musculoskeletal: denies: back pain Neurological: denies: headache Medications and Allergies Allergies Allergy/AdvReac Type Severity Reaction Status Date / Time morphine Allergy Hives Verified 09/03/20 08:48 Home Medications Medication Instructions Recorded Confirmed Last Taken Type Ibuprofen [Motrin 600 MG tab] 600 mg PO Q8H PRN #40 tablet 02/13/14 09/04/20 3 Days Ago Rx ~09/01/20 Albuterol Mdi (or & Nicu Only) 2 puff IH QID PRN #1 inhalation 05/11/14 09/04/20 Unknown Rx [ProAir HFA Inhaler] Acetaminophen/Codeine [Tylenol 1 tab PO Q6H PRN #8 tablet 09/07/20 Unknown Rx /Codeine # 3 tab] Azithromycin [Zithromax Z-FILIPPO] 0 mg PO DAILY #1 tab 09/07/20 Unknown Rx Furosemide [Lasix] 20 mg PO QDAY #30 tablet 09/07/20 Unknown Rx guaiFENesin DM [Guaifenesin Dm 10 ml PO Q4H PRN 14 Days #1 bottle 09/07/20 Unknown Rx Syrup] Albuterol Mdi (or & Nicu Only) 2 puff IH QID PRN 30 Days #8.5 gram 04/16/21 Unknown Rx [ProAir HFA Inhaler] Cetirizine HCl [Zyrtec 10mg tab] 10 mg PO DAILY 30 Days #30 tablet 04/16/21 Unk nown Rx Fluticasone [Flonase] 1 spray NS QDAY 30 Days #1 bottle 04/16/21 Unknown Rx Ipratropium/Albuterol Sulfate 1 ampul IH Q6HR PRN #50 ampul.neb 04/16/21 Unknown Rx [DUONEB *Not for PRN Use*] Montelukast [Singulair] 10 mg PO QPM 30 Days #30 tablet 04/16/21 Unknown Rx Prednisone [predniSONE 10 mg 10 mg PO .TAPER 6 Days #1 tab.ds.pk 04/16/21 Unknown Rx (6-Day Pack, 21 Tabs)] levoFLOXacin [Levaquin] 750 mg PO QDAY #8 tablet 04/16/21 Unknown Rx Active Meds: Active Medications Acetaminophen (Acetaminophen 325 Mg Tab) 650 mg PO Q4H PRN PRN Reason: Pain MILD(1-3)/Fever >100.5/WAGNER Albuterol (Albuterol 2.5 Mg/3 Ml Nebu) 2.5 mg IH Q3HRT PRN PRN Reason: Wheezing Albuterol/Ipratropium (Ipratropium/Albuterol Sulfate 3 Ml Ampul.Neb) 1 ampul IH QIDRT [facility] Last Admin: 04/16/21 22:00 Dose: 1 ampul Heparin Sodium (Porcine) (Heparin 5,000 Unit/1 Ml Vial) 5,000 unit SUB-Q Q12HR [facility] Last Admin: 04/16/21 22:45 Dose: Not Given Hydromorphone HCl (Hydromorphone 1 Mg/1 Ml Inj) 0.5 mg IV Q3H PRN PRN Reason: Pain , Severe (7-10) Sodium Chloride (Nacl 0.9% 1000 Ml) 1,000 mls @ 75 mls/hr IV DIRECT GEORGE Levofloxacin/Dextrose (Levaquin 750mg/150ml) 750 mg in 150 mls @ 100 mls/hr IV Q24H GEORGE; Protocol Last Admin: 04/16/21 22:30 Dose: 100 mls/hr Methylprednisolone Sodium Succinate (Methylprednisolone Sod Succinate 125 Mg/2 Ml Inj) 60 mg IV Q8HR GEORGE Last Admin: 04/17/21 05:57 Dose: 60 mg Ondansetron HCl (Ondansetron 4 Mg/2 Ml Inj) 4 mg IV Q8H PRN PRN Reason: Nausea And Vomiting Oxycodone/Acetaminophen (Oxycodone /Acetaminophen 5-325mg Tab) 1 tab PO Q6H PRN PRN Reason: Pain, Moderate (4-6) Last Admin: 04/17/21 06:09 Dose: 1 tab Sodium Chloride (Sodium Chloride 0.9% 10 Ml Flush Syringe) 10 ml IV BID GEORGE Sodium Chloride (Sodium Chloride 0.9% 10 Ml Flush Syringe) 10 ml IV PRN PRN PRN Reason: LINE FLUSH Exam - Constitutional Vitals: Temp Pulse Resp BP Pulse Ox 98 H 20 119/62 95 04/17/21 05:31 04/17/21 05:31 04/17/21 05:31 04/17/21 05:31 General appearance: Present: mild distress, well-nourished - EENT Eyes: Present: PERRL ENT: hearing intact, clear oral mucosa - Neck Neck: Present: supple, normal ROM - Respiratory Respiratory effort: normal Respiratory: bilateral: CTA - Cardiovascular Heart rate: 78 Rhythm: regular Heart Sounds: Present: S1 & S2. Absent: rub, click - Extremities Extremities: no ischemia, pulses intact, pulses symmetrical, No edema Peripheral Pulses: within normal limits - Abdominal General gastrointestinal: Present: soft, non-tender, non-distended, normal bowel sounds Female genitourinary: Present: normal - Rectal Rectal Exam: deferred - Integumentary Integumentary: Present: clear, warm, dry - Musculoskeletal Musculoskeletal: gait normal, strength equal bilaterally - Psychiatric Psychiatric: appropriate mood/affect, intact judgment & insight - Neurologic Neurologic: CNII-XII intact, moves all extremities - Allied Health Allied health notes reviewed: nursing, case management Results - Labs CBC & Chem 7: 04/17/21 04:55 04/17/21 04:55 Labs: Laboratory Last Values WBC 5.2 K/mm3 (4.5-11.0) 04/17/21 04:55 RBC 5.17 M/mm3 (3.65-5.03) H 04/17/21 04:55 Hgb 14.8 gm/dl (10.1-14.3) H 04/17/21 04:55 Hct 47.9 % (30.3-42.9) H 04/17/21 04:55 MCV 93 fl (79-97) 04/17/21 04:55 MCH 29 pg (28-32) 04/17/21 04:55 MCHC 31 % (30-34) 04/17/21 04:55 RDW 14.4 % (13.2-15.2) 04/17/21 04:55 Plt Count 170 K/mm3 (140-440) 04/17/21 04:55 Lymph % (Auto) 6.9 % (13.4-35.0) L 04/17/21 04:55 [place] % (Auto) 3.6 % (0.0-7.3) 04/17/21 04:55 Eos % (Auto) 0.0 % (0.0-4.3) 04/17/21 04:55 Baso % (Auto) 0.1 % (0.0-1.8) 04/17/21 04:55 Lymph # (Auto) 0.4 K/mm3 (1.2-5.4) L 04/17/21 04:55 [place] # (Auto) 0.2 K/mm3 (0.0-0.8) 04/17/21 04:55 Eos # (Auto) 0.0 K/mm3 (0.0-0.4) 04/17/21 04:55 Baso # (Auto) 0.0 K/mm3 (0.0-0.1) 04/17/21 04:55 Seg Neutrophils % 89.4 % (40.0-70.0) H 04/17/21 04:55 Seg Neutrophils # 4.6 K/mm3 (1.8-7.7) 04/17/21 04:55 Sodium 140 mmol/L (137-145) 04/17/21 04:55 Potassium 4.3 mmol/L (3.6-5.0) 04/17/21 04:55 Chloride 99.2 mmol/L (98-107) 04/17/21 04:55 Carbon Dioxide 26 mmol/L (22-30) 04/17/21 04:55 Anion Gap 19 mmol/L 04/17/21 04:55 BUN 6 mg/dL (7-17) L 04/17/21 04:55 Creatinine 0.4 mg/dL (0.6-1.2) L 04/17/21 04:55 Estimated GFR > 60 ml/min 04/17/21 04:55 BUN/Creatinine Ratio 15 % 04/17/21 04:55 Glucose 177 mg/dL (65-100) H 04/17/21 04:55 Hemoglobin A1c 6.1 % (4-6) H 04/17/21 04:55 Lactic Acid 0.80 mmol/L (0.7-2.0) 04/16/21 12:39 Calcium 9.3 mg/dL (8.4-10.2) 04/17/21 04:55 Total Bilirubin 0.30 mg/dL (0.1-1.2) 04/17/21 04:55 AST 14 units/L (5-40) 04/17/21 04:55 ALT 19 units/L (7-56) 04/17/21 04:55 Alkaline Phosphatase 87 units/L (35-129) 04/17/21 04:55 NT-Pro-B Natriuret Pep 3225 pg/mL (0-900) H 04/16/21 12:39 Total Protein 6.9 g/dL (6.3-8.2) 04/17/21 04:55 Albumin 4.1 g/dL (3.9-5) 04/17/21 04:55 Albumin/Globulin Ratio 1.5 % 04/17/21 04:55 Short CBC 04/16/21 04/17/21 Range/Units 12:39 04:55 WBC 7.0 5.2 (4.5-11.0) K/mm3 Hgb 15.7 H 14.8 H (10.1-14.3) gm/dl Hct 49.6 H 47.9 H (30.3-42.9) % Plt Count 179 170 (140-440) K/mm3 BMP 04/16/21 04/17/21 12:39 04:55 Sodium 139 140 Potassium 4.1 4.3 Chloride 98.7 99.2 Carbon Dioxide 24 26 BUN 7 6 L Creatinine 0.5 L 0.4 L Glucose 111 H 177 H Calcium 9.4 9.3 Liver Function 04/17/21 Range/Units 04:55 Total Bilirubin 0.30 (0.1-1.2) mg/dL AST 14 (5-40) units/L ALT 19 (7-56) units/L Alkaline Phosphatase 87 (35-129) units/L Albumin 4.1 (3.9-5) g/dL Microbiology: Microbiology 04/16/21 12:39 Peripheral/Venous Blood Culture - Preliminary Culture in Progress 04/16/21 12:39 Peripheral/Venous Blood Culture - Preliminary Culture in Progress - Imaging and Cardiology Chest x-ray: report reviewed Imaging and Cardiology: Chest x-ray No acute findings Assessment and Plan Advance Directives: Yes (Full code) VTE prophylaxis?: Chemical Plan of care discussed with patient/family: Yes - Patient Problems (1) Acute respiratory failure with hypoxia Current Visit: Yes Status: Acute Plan to address problem: Patient 4 L nasal cannula oxygen Respiratory assessment and treatment. (2) Acute bronchitis Current Visit: Yes Status: Acute Plan to address problem: IV antibiotics for now and IV steroids (3) Asthma exacerbation Current Visit: Yes Status: Acute Qualifiers: Asthma severity: severe Plan to address problem: IV Solu-Medrol, IV antibiotics and duo nebs (4) Elevated brain natriuretic peptide (BNP) level Current Visit: Yes Status: Acute Plan to address problem: Possible CHF Get echocardiogram for ejection fraction and valve (5) Polycythemia due to fall in plasma volume Current Visit: Yes Status: Acute Plan to address problem: IV normal saline for now (6) DVT prophylaxis Current Visit: Yes Status: Acute Plan to address problem: On anticoagulation GI prophylaxis (7) Advance care planning Current Visit: Yes Status: Acute Plan to address problem: Disease education conducted, care plan discussed, diagnosis discussed, prognosis discussed. Patient is full code. Patient acknowledges understanding and agreement with care plan. +30 minutes.
[2021-04-17] MEDS ORDERED: ALBUTEROL 8.5 GM MDI INHALATION IH PRN (07:29)
[2021-04-17] MEDS ORDERED: SODIUM CHLORIDE 0.9% 50 ML IVPB IV PRN (08:08)
--- NOTE | 2021-04-17 09:29 | Progress Note ---
Assessment and Plan Assessment and plan: 56-year-old female with history of tobacco smoking, quit 4 months ago and asthma presents with wheezing for 3 days. Patient also having cough productive yellow sputum. Patient has not inhalers. No fever or chills. Patient had Covid vaccine in August 2020. Patient is not on home oxygen. Patient was hypoxic to 87/88% on room air in the emergency room. Patient was given multiple breathing treatments in the emergency room but continued to desaturate without oxygen. Patient wanted to sign out AMA but became hypoxic and then was convinced to stay back. (1) Acute respiratory failure with hypoxia Current Visit: Yes Status: Acute Plan to address problem: Started on 4 L nasal cannula oxygen, weaned to 2 L currently Patient needed home O2 for a month when he was admitted about 5 months ago. (2) Acute COPD/bronchitis exacerbation Current Visit: Yes Status: Acute Plan to address problem: With cough, yellow sputum, wheezing, dyspnea and hypoxia Continue nebs, IV antibiotics and IV steroids (3) tobacco smoking Current Visit: Yes Status: Acute Qualifiers: Asthma severity: severe Plan to address problem: Patient claims quitting 2 months ago Counseled on tobacco smoking (4) Elevated brain natriuretic peptide (BNP) level Current Visit: Yes Status: Acute Plan to address problem: Possible CHF Get echocardiogram for ejection fraction and valve (5) Polycythemia due to fall in plasma volume Current Visit: Yes Status: Acute Plan to address problem: IV normal saline for now (6) DVT prophylaxis Current Visit: Yes Status: Acute Plan to address problem: On anticoagulation GI prophylaxis Discussed with the patient. History Interval history: Patient reports that his breathing better. He still coughing yellow sputum. C urrently on Crestor. No pleural chest pain, hemoptysis, fever or chills. Hospitalist Physical - Constitutional Vitals: Temp Pulse Resp BP Pulse Ox 98.2 F 99 H 15 133/78 90 04/17/21 07:52 04/17/21 07:31 04/17/21 07:31 04/17/21 07:31 04/17/21 07:31 General appearance: Present: mild distress, well-nourished - EENT Eyes: Present: PERRL, EOM intact ENT: hearing intact - Neck Neck: Present: supple - Respiratory Respiratory: bilateral: diminished, wheezing - Cardiovascular Rhythm: regular - Extremities Extremities: No edema - Abdominal General gastrointestinal: soft, non-tender, non-distended - Integumentary Integumentary: Absent: rash - Psychiatric Psychiatric: appropriate mood/affect - Neurologic Neurologic: no focal deficits, other (Alert and oriented, mentating normally.) Results - Labs CBC & Chem 7: 04/17/21 04:55 04/17/21 04:55 Labs: Laboratory Last Values WBC 5.2 K/mm3 (4.5-11.0) 04/17/21 04:55 RBC 5.17 M/mm3 (3.65-5.03) H 04/17/21 04:55 Hgb 14.8 gm/dl (10.1-14.3) H 04/17/21 04:55 Hct 47.9 % (30.3-42.9) H 04/17/21 04:55 MCV 93 fl (79-97) 04/17/21 04:55 MCH 29 pg (28-32) 04/17/21 04:55 MCHC 31 % (30-34) 04/17/21 04:55 RDW 14.4 % (13.2-15.2) 04/17/21 04:55 Plt Count 170 K/mm3 (140-440) 04/17/21 04:55 Lymph % (Auto) 6.9 % (13.4-35.0) L 04/17/21 04:55 [place] % (Auto) 3.6 % (0.0-7.3) 04/17/21 04:55 Eos % (Auto) 0.0 % (0.0-4.3) 04/17/21 04:55 Baso % (Auto) 0.1 % (0.0-1.8) 04/17/21 04:55 Lymph # (Auto) 0.4 K/mm3 (1.2-5.4) L 04/17/21 04:55 [place] # (Auto) 0.2 K/mm3 (0.0-0.8) 04/17/21 04:55 Eos # (Auto) 0.0 K/mm3 (0.0-0.4) 04/17/21 04:55 Baso # (Auto) 0.0 K/mm3 (0.0-0.1) 04/17/21 04:55 Seg Neutrophils % 89.4 % (40.0-70.0) H 04/17/21 04:55 Seg Neutrophils # 4.6 K/mm3 (1.8-7.7) 04/17/21 04:55 Sodium 140 mmol/L (137-145) 04/17/21 04:55 Potassium 4.3 mmol/L (3.6-5.0) 04/17/21 04:55 Chloride 99.2 mmol/L (98-107) 04/17/21 04:55 Carbon Dioxide 26 mmol/L (22-30) 04/17/21 04:55 Anion Gap 19 mmol/L 04/17/21 04:55 BUN 6 mg/dL (7-17) L 04/17/21 04:55 Creatinine 0.4 mg/dL (0.6-1.2) L 04/17/21 04:55 Estimated GFR > 60 ml/min 04/17/21 04:55 BUN/Creatinine Ratio 15 % 04/17/21 04:55 Glucose 177 mg/dL (65-100) H 04/17/21 04:55 Hemoglobin A1c 6.1 % (4-6) H 04/17/21 04:55 Lactic Acid 0.80 mmol/L (0.7-2.0) 04/16/21 12:39 Calcium 9.3 mg/dL (8.4-10.2) 04/17/21 04:55 Total Bilirubin 0.30 mg/dL (0.1-1.2) 04/17/21 04:55 AST 14 units/L (5-40) 04/17/21 04:55 ALT 19 units/L (7-56) 04/17/21 04:55 Alkaline Phosphatase 87 units/L (35-129) 04/17/21 04:55 NT-Pro-B Natriuret Pep 3225 pg/mL (0-900) H 04/16/21 12:39 Total Protein 6.9 g/dL (6.3-8.2) 04/17/21 04:55 Albumin 4.1 g/dL (3.9-5) 04/17/21 04:55 Albumin/Globulin Ratio 1.5 % 04/17/21 04:55 Microbiology: Microbiology 04/16/21 12:39 Peripheral/Venous Blood Culture - Preliminary Culture in Progress 04/16/21 12:39 Peripheral/Venous Blood Culture - Preliminary Culture in Progress Active Medications - Current Medications Current Medications: Generic Name Dose Route Start Last Admin Trade Name Freq PRN Reason Stop Dose Admin Acetaminophen 650 mg 04/16/21 18:49 Acetaminophen 325 Mg Tab PO Q4H PRN Pain MILD(1-3)/Fever >100.5/WAGNER Albuterol 2.5 mg 04/16/21 19:27 Albuterol 2.5 Mg/3 Ml Nebu IH Q3HRT PRN Wheezing Albuterol/Ipratropium 1 ampul 04/16/21 20:00 04/16/21 22:00 Ipratropium/Albuterol Sulfate 3 Ml Ampul.Neb IH 1 ampul QIDRT GEORGE Administration Heparin Sodium (Porcine) 5,000 unit 04/16/21 22:00 04/16/21 22:45 Heparin 5,000 Unit/1 Ml Vial SUB-Q Not Given Q12HR GEORGE Hydromorphone HCl 0.5 mg 04/16/21 18:54 Hydromorphone 1 Mg/1 Ml Inj IV Q3H PRN Pain , Severe (7-10) Sodium Chloride 1,000 mls @ 75 mls/hr 04/16/21 07:00 Nacl 0.9% 1000 Ml IV DIRECT GEORGE Levofloxacin/Dextrose 750 mg in 150 mls @ 100 mls/hr 04/16/21 20:00 04/16/21 22:30 Levaquin 750mg/150ml IV 04/20/21 21:29 100 mls/hr Q24H GEORGE Administration Protocol Methylprednisolone Sodium Succinate 60 mg 04/16/21 22:00 04/17/21 05:57 Methylprednisolone Sod Succinate 125 Mg/2 Ml Inj IV 60 mg Q8HR GEORGE Administration Ondansetron HCl 4 mg 04/16/21 18:49 Ondansetron 4 Mg/2 Ml Inj IV Q8H PRN Nausea And Vomiting Oxycodone/Acetaminophen 1 tab 04/16/21 18:54 04/17/21 06:09 Oxycodone /Acetaminophen 5-325mg Tab PO 1 tab Q6H PRN Administration Pain, Moderate (4-6) Sodium Chloride 10 ml 04/16/21 22:00 04/16/21 22:00 Sodium Chloride 0.9% 10 Ml Flush Syringe IV Not Given BID GEORGE Sodium Chloride 10 ml 04/17/21 08:08 Sodium Chloride 0.9% 50 Ml Ivpb IV PRN PRN FLUSH
[2021-04-17] MEDS: IPRATROPIUM/ALBUTEROL SULFATE 3 ML AMPUL.NEB IH SCH ×4 (11:34→21:00)
[2021-04-17] MEDS: HEPARIN 5,000 UNIT/1 ML VIAL SUB-Q SCH ×2 (11:38→23:58)
[2021-04-17] MEDS ORDERED: FLU VACC QUAD 2021-22(6MOS UP)/PF 60 MCG/0.5 ML SYRINGE IM ONE (14:00)
[2021-04-18] MEDS: methylPREDNISolone Sod Succinate 125 MG/2 ML INJ IV SCH ×3 (06:21→22:33)
[2021-04-18] MEDS: HEPARIN 5,000 UNIT/1 ML VIAL SUB-Q SCH ×2 (10:49→22:33)
[2021-04-18] MEDS: IPRATROPIUM/ALBUTEROL SULFATE 3 ML AMPUL.NEB IH SCH ×5 (12:42→21:16)
--- NOTE | 2021-04-18 19:23 | Progress Note ---
Assessment and Plan Assessment and plan: 56-year-old female with history of tobacco smoking, quit 4 months ago and asthma presents with wheezing for 3 days. Patient also having cough productive yellow sputum. Patient has not inhalers. No fever or chills. Patient had Covid vaccine in August 2020. Patient is not on home oxygen. Patient was hypoxic to 87/88% on room air in the emergency room. Patient was given multiple breathing treatments in the emergency room but continued to desaturate without oxygen. Patient wanted to sign out AMA but became hypoxic and then was convinced to stay back. (1) Acute respiratory failure with hypoxia Current Visit: Yes Status: Acute Plan to address problem: Started on 4 L nasal cannula oxygen, weaned to 2 L currently Patient needed home O2 for a month when he was admitted about 5 months ago. (2) Acute COPD/bronchitis exacerbation Current Visit: Yes Status: Acute Plan to address problem: With cough, yellow sputum, wheezing, dyspnea and hypoxia Continue nebs, IV antibiotics, mucolytic's and IV steroids (3) tobacco smoking Current Visit: Yes Status: Acute Qualifiers: Asthma severity: severe Plan to address problem: Patient claims quitting 2 months ago Counseled on tobacco smoking (4) Elevated brain natriuretic peptide (BNP) level Current Visit: Yes Status: Acute Plan to address problem: Possible CHF Get echocardiogram for ejection fraction and valve (5) Polycythemia due to fall in plasma volume Current Visit: Yes Status: Acute Plan to address problem: IV normal saline for now (6) DVT prophylaxis Current Visit: Yes Status: Acute Plan to address problem: On anticoagulation GI prophylaxis Discussed with the patient. History Interval history: Patient reports that the bleeding some better but still wheezing a lot with the dyspnea. Afebrile. Sputum is yellow but, is improving. Denies nasal/sinus congestion or drainage, on Levaquin and IV Solu-Medrol. Hospitalist Physical - Constitutional Vitals: Temp Pulse Resp BP Pulse Ox 97.7 F 100 H 20 123/77 91 04/17/21 21:19 04/17/21 21:19 04/17/21 22:00 04/17/21 21:19 04/18/21 12:44 General appearance: Present: mild distress, well-nourished - EENT Eyes: Present: PERRL, EOM intact ENT: clear oral mucosa - Neck Neck: Present: supple - Respiratory Respiratory effort: labored Respiratory: bilateral: diminished, wheezing (Bilateral moderate otitis media wheezes) - Cardiovascular Rhythm: regular - Extremities Extremities: No edema - Abdominal General gastrointestinal: soft, non-tender, non-distended - Integumentary Integumentary: Absent: rash - Psychiatric Psychiatric: appropriate mood/affect - Neurologic Neurologic: no focal deficits, moves all extremities Results - Labs CBC & Chem 7: 04/17/21 04:55 04/17/21 04:55 Labs: Laboratory Last Values WBC 5.2 K/mm3 (4.5-11.0) 04/17/21 04:55 RBC 5.17 M/mm3 (3.65-5.03) H 04/17/21 04:55 Hgb 14.8 gm/dl (10.1-14.3) H 04/17/21 04:55 Hct 47.9 % (30.3-42.9) H 04/17/21 04:55 MCV 93 fl (79-97) 04/17/21 04:55 MCH 29 pg (28-32) 04/17/21 04:55 MCHC 31 % (30-34) 04/17/21 04:55 RDW 14.4 % (13.2-15.2) 04/17/21 04:55 Plt Count 170 K/mm3 (140-440) 04/17/21 04:55 Lymph % (Auto) 6.9 % (13.4-35.0) L 04/17/21 04:55 [place] % (Auto) 3.6 % (0.0-7.3) 04/17/21 04:55 Eos % (Auto) 0.0 % (0.0-4.3) 04/17/21 04:55 Baso % (Auto) 0.1 % (0.0-1.8) 04/17/21 04:55 Lymph # (Auto) 0.4 K/mm3 (1.2-5.4) L 04/17/21 04:55 [place] # (Auto) 0.2 K/mm3 (0.0-0.8) 04/17/21 04:55 Eos # (Auto) 0.0 K/mm3 (0.0-0.4) 04/17/21 04:55 Baso # (Auto) 0.0 K/mm3 (0.0-0.1) 04/17/21 04:55 Seg Neutrophils % 89.4 % (40.0-70.0) H 04/17/21 04:55 Seg Neutrophils # 4.6 K/mm3 (1.8-7.7) 04/17/21 04:55 Sodium 140 mmol/L (137-145) 04/17/21 04:55 Potassium 4.3 mmol/L (3.6-5.0) 04/17/21 04:55 Chloride 99.2 mmol/L (98-107) 04/17/21 04:55 Carbon Dioxide 26 mmol/L (22-30) 04/17/21 04:55 Anion Gap 19 mmol/L 04/17/21 04:55 BUN 6 mg/dL (7-17) L 04/17/21 04:55 Creatinine 0.4 mg/dL (0.6-1.2) L 04/17/21 04:55 Estimated GFR > 60 ml/min 04/17/21 04:55 BUN/Creatinine Ratio 15 % 04/17/21 04:55 Glucose 177 mg/dL (65-100) H 04/17/21 04:55 Hemoglobin A1c 6.1 % (4-6) H 04/17/21 04:55 Lactic Acid 0.80 mmol/L (0.7-2.0) 04/16/21 12:39 Calcium 9.3 mg/dL (8.4-10.2) 04/17/21 04:55 Total Bilirubin 0.30 mg/dL (0.1-1.2) 04/17/21 04:55 AST 14 units/L (5-40) 04/17/21 04:55 ALT 19 units/L (7-56) 04/17/21 04:55 Alkaline Phosphatase 87 units/L (35-129) 04/17/21 04:55 NT-Pro-B Natriuret Pep 3225 pg/mL (0-900) H 04/16/21 12:39 Total Protein 6.9 g/dL (6.3-8.2) 04/17/21 04:55 Albumin 4.1 g/dL (3.9-5) 04/17/21 04:55 Albumin/Globulin Ratio 1.5 % 04/17/21 04:55 Coronavirus (PCR) Negative (Negative) 04/17/21 Unknown Influenza A (Rapid) Negative (Negative) 04/17/21 10:00 Influenza B (Rapid) Negative (Negative) 04/17/21 10:00 Microbiology: Microbiology 04/16/21 12:39 Peripheral/Venous Blood Culture - Preliminary NO GROWTH AFTER 48 HOURS 04/16/21 12:39 Peripheral/Venous Blood Culture - Preliminary NO GROWTH AFTER 48 HOURS Active Medications - Current Medications Current Medications: Generic Name Dose Route Start Last Admin Trade Name Freq PRN Reason Stop Dose Admin Acetaminophen 650 mg 04/16/21 18:49 Acetaminophen 325 Mg Tab PO Q4H PRN Pain MILD(1-3)/Fever >100.5/WAGNER Albuterol 2.5 mg 04/16/21 19:27 Albuterol 2.5 Mg/3 Ml Nebu IH Q3HRT PRN Wheezing Albuterol/Ipratropium 1 ampul 04/16/21 20:00 04/18/21 16:05 Ipratropium/Albuterol Sulfate 3 Ml Ampul.Neb IH Not Given QIDRT GEORGE Heparin Sodium (Porcine) 5,000 unit 04/16/21 22:00 04/18/21 10:49 Heparin 5,000 Unit/1 Ml Vial SUB-Q 5,000 unit Q12HR GEORGE Administration Hydromorphone HCl 0.5 mg 04/16/21 18:54 Hydromorphone 1 Mg/1 Ml Inj IV Q3H PRN Pain , Severe (7-10) Sodium Chloride 1,000 mls @ 75 mls/hr 04/16/21 07:00 Nacl 0.9% 1000 Ml IV DIRECT GEORGE Levofloxacin/Dextrose 750 mg in 150 mls @ 100 mls/hr 04/16/21 20:00 04/18/21 00:00 Levaquin 750mg/150ml IV 04/20/21 21:29 100 mls/hr Q24H GEORGE Administration Protocol Methylprednisolone Sodium Succinate 60 mg 04/16/21 22:00 04/18/21 13:35 Methylprednisolone Sod Succinate 125 Mg/2 Ml Inj IV 60 mg Q8HR GEORGE Administration Ondansetron HCl 4 mg 04/16/21 18:49 Ondansetron 4 Mg/2 Ml Inj IV Q8H PRN Nausea And Vomiting Oxycodone/Acetaminophen 1 tab 04/16/21 18:54 04/17/21 06:09 Oxycodone /Acetaminophen 5-325mg Tab PO 1 tab Q6H PRN Administration Pain, Moderate (4-6) Sodium Chloride 10 ml 04/16/21 22:00 04/18/21 10:50 Sodium Chloride 0.9% 10 Ml Flush Syringe IV 10 ml BID GEORGE Administration Sodium Chloride 10 ml 04/17/21 08:08 Sodium Chloride 0.9% 50 Ml Ivpb IV PRN PRN FLUSH
[2021-04-19] MEDS: methylPREDNISolone Sod Succinate 125 MG/2 ML INJ IV SCH ×3 (05:43→22:34)
[2021-04-19] MEDS: BUDESONIDE 0.5 MG/2 ML NEBU IH SCH ×2 (08:18→21:27)
[2021-04-19] MEDS: IPRATROPIUM/ALBUTEROL SULFATE 3 ML AMPUL.NEB IH SCH ×3 (08:18→21:27)
[2021-04-19] MEDS: ARFORMOTEROL 15 MCG/2 ML NEBU IH SCH ×2 (08:18→21:32)
[2021-04-19] MEDS: HEPARIN 5,000 UNIT/1 ML VIAL SUB-Q SCH ×3 (09:14→22:33)
[2021-04-19] MEDS: guaiFENesin ER 600 MG TAB PO SCH ×2 (09:14→22:34)
[2021-04-19] MEDS: guaiFENesin/CODEINE 100-10MG ORAL LIQD 5 ML PO PRN (17:32)
--- NOTE | 2021-04-19 19:19 | Progress Note ---
Assessment and Plan Assessment and plan: 56-year-old female with history of tobacco smoking, quit 4 months ago and asthma presents with wheezing for 3 days. Patient also having cough productive yellow sputum. Patient has not inhalers. No fever or chills. Patient had Covid vaccine in August 2020. Patient is not on home oxygen. Patient was hypoxic to 87/88% on room air in the emergency room. Patient was given multiple breathing treatments in the emergency room but continued to desaturate without oxygen. Patient wanted to sign out AMA but became hypoxic and then was convinced to stay back. (1) Acute respiratory failure with hypoxia Current Visit: Yes Status: Acute Plan to address problem: Started on 4 L nasal cannula oxygen, weaned to 2 L currently Patient needed home O2 for a month when he was admitted about 5 months ago. O2 sats dropped to 86% with ambulation on room air on 04/19, home O2 supply requested with manager of case management (2) Acute COPD/bronchitis exacerbation Current Visit: Yes Status: Acute Plan to address problem: With cough, yellow sputum, wheezing, dyspnea and hypoxia Placed on nebs, IV antibiotics, mucolytic's and IV steroids Symptoms improving, start tapering steroids. Possible discharge tomorrow (3) tobacco smoking Current Visit: Yes Status: Acute Qualifiers: Asthma severity: severe Plan to address problem: Patient claims quitting 2 months ago Counseled on tobacco smoking (4) Elevated brain natriuretic peptide (BNP) level Current Visit: Yes Status: Acute Plan to address problem: Possible CHF Get echocardiogram for ejection fraction and valve disease (5) Polycythemia due to fall in plasma volume Current Visit: Yes Status: Acute Plan to address problem: IV normal saline for now (6) DVT prophylaxis Current Visit: Yes Status: Acute Plan to address problem: On anticoagulation GI prophylaxis Disposition: Symptoms improving, needs home O2 supply, anticipating discharge t omorrow once home O2 arranged. Discussed with the patient, nursing staff and CM History Interval history: Patient reports improvement of wheezing and dyspnea but still hypoxic needing O2. Still has cough. Sputum color is clearing. Afebrile. O2 sats dropped to 86% with ambulation on room air and home O2 supply requested with manager of case management. Hospitalist Physical - Constitutional Vitals: Temp Pulse Resp BP Pulse Ox 97.7 F 92 H 20 141/88 94 04/19/21 04:49 04/19/21 08:20 04/19/21 18:32 04/19/21 04:49 04/19/21 11:47 General appearance: Present: mild distress, well-nourished - EENT Eyes: Present: PERRL, EOM intact ENT: hearing intact, clear oral mucosa - Neck Neck: Present: supple - Respiratory Respiratory effort: other (Mildly dyspneic) Respiratory: bilateral: diminished, wheezing (Wheezes much improved.) - Cardiovascular Rhythm: regular - Extremities Extremities: No edema - Abdominal General gastrointestinal: soft, non-tender, non-distended - Integumentary Integumentary: Present: warm. Absent: rash - Psychiatric Psychiatric: appropriate mood/affect - Neurologic Neurologic: no focal deficits, moves all extremities Results - Labs CBC & Chem 7: 04/17/21 04:55 04/17/21 04:55 Labs: Laboratory Last Values WBC 5.2 K/mm3 (4.5-11.0) 04/17/21 04:55 RBC 5.17 M/mm3 (3.65-5.03) H 04/17/21 04:55 Hgb 14.8 gm/dl (10.1-14.3) H 04/17/21 04:55 Hct 47.9 % (30.3-42.9) H 04/17/21 04:55 MCV 93 fl (79-97) 04/17/21 04:55 MCH 29 pg (28-32) 04/17/21 04:55 MCHC 31 % (30-34) 04/17/21 04:55 RDW 14.4 % (13.2-15.2) 04/17/21 04:55 Plt Count 170 K/mm3 (140-440) 04/17/21 04:55 Lymph % (Auto) 6.9 % (13.4-35.0) L 04/17/21 04:55 [place] % (Auto) 3.6 % (0.0-7.3) 04/17/21 04:55 Eos % (Auto) 0.0 % (0.0-4.3) 04/17/21 04:55 Baso % (Auto) 0.1 % (0.0-1.8) 04/17/21 04:55 Lymph # (Auto) 0.4 K/mm3 (1.2-5.4) L 04/17/21 04:55 [place] # (Auto) 0.2 K/mm3 (0.0-0.8) 04/17/21 04:55 Eos # (Auto) 0.0 K/mm3 (0.0-0.4) 04/17/21 04:55 Baso # (Auto) 0.0 K/mm3 (0.0-0.1) 04/17/21 04:55 Seg Neutrophils % 89.4 % (40.0-70.0) H 04/17/21 04:55 Seg Neutrophils # 4.6 K/mm3 (1.8-7.7) 04/17/21 04:55 Sodium 140 mmol/L (137-145) 04/17/21 04:55 Potassium 4.3 mmol/L (3.6-5.0) 04/17/21 04:55 Chloride 99.2 mmol/L (98-107) 04/17/21 04:55 Carbon Dioxide 26 mmol/L (22-30) 04/17/21 04:55 Anion Gap 19 mmol/L 04/17/21 04:55 BUN 6 mg/dL (7-17) L 04/17/21 04:55 Creatinine 0.4 mg/dL (0.6-1.2) L 04/17/21 04:55 Estimated GFR > 60 ml/min 04/17/21 04:55 BUN/Creatinine Ratio 15 % 04/17/21 04:55 Glucose 177 mg/dL (65-100) H 04/17/21 04:55 Hemoglobin A1c 6.1 % (4-6) H 04/17/21 04:55 Lactic Acid 0.80 mmol/L (0.7-2.0) 04/16/21 12:39 Calcium 9.3 mg/dL (8.4-10.2) 04/17/21 04:55 Total Bilirubin 0.30 mg/dL (0.1-1.2) 04/17/21 04:55 AST 14 units/L (5-40) 04/17/21 04:55 ALT 19 units/L (7-56) 04/17/21 04:55 Alkaline Phosphatase 87 units/L (35-129) 04/17/21 04:55 NT-Pro-B Natriuret Pep 3225 pg/mL (0-900) H 04/16/21 12:39 Total Protein 6.9 g/dL (6.3-8.2) 04/17/21 04:55 Albumin 4.1 g/dL (3.9-5) 04/17/21 04:55 Albumin/Globulin Ratio 1.5 % 04/17/21 04:55 Coronavirus (PCR) Negative (Negative) 04/17/21 Unknown Influenza A (Rapid) Negative (Negative) 04/17/21 10:00 Influenza B (Rapid) Negative (Negative) 04/17/21 10:00 Microbiology: Microbiology 04/16/21 12:39 Peripheral/Venous Blood Culture - Preliminary NO GROWTH AFTER 72 HOURS 04/16/21 12:39 Peripheral/Venous Blood Culture - Preliminary NO GROWTH AFTER 72 HOURS Active Medications - Current Medications Current Medications: Generic Name Dose Route Start Last Admin Trade Name Freq PRN Reason Stop Dose Admin Acetaminophen 650 mg 04/16/21 18:49 04/19/21 17:32 Acetaminophen 325 Mg Tab PO 650 mg Q4H PRN Administration Pain MILD(1-3)/Fever >100.5/WAGNER Albuterol 2.5 mg 04/16/21 19:27 Albuterol 2.5 Mg/3 Ml Nebu IH Q3HRT PRN Wheezing Albuterol/Ipratropium 1 ampul 04/19/21 14:00 04/19/21 15:50 Ipratropium/Albuterol Sulfate 3 Ml Ampul.Neb IH 1 ampul TIDRT GEORGE Administration Arformoterol Tartrate 15 mcg 04/19/21 08:00 04/19/21 08:18 Arformoterol 15 Mcg/2 Ml Nebu IH 15 mcg Q12HRT GEORGE Administration Budesonide 0.5 mg 04/19/21 08:00 04/19/21 08:18 Budesonide 0.5 Mg/2 Ml Nebu IH 0.5 mg Q12HRT GEORGE Administration Guaifenesin 600 mg 04/19/21 10:00 04/19/21 09:14 Guaifenesin Er 600 Mg Tab PO 600 mg BID GEORGE Administration Heparin Sodium (Porcine) 5,000 unit 04/16/21 22:00 04/19/21 09:18 Heparin 5,000 Unit/1 Ml Vial SUB-Q Not Given Q12HR GEORGE Sodium Chloride 1,000 mls @ 75 mls/hr 04/16/21 07:00 Nacl 0.9% 1000 Ml IV DIRECT GEORGE Levofloxacin/Dextrose 750 mg in 150 mls @ 100 mls/hr 04/16/21 20:00 04/18/21 22:36 Levaquin 750mg/150ml IV 04/20/21 21:29 100 mls/hr Q24H GEORGE Administration Protocol Methylprednisolone Sodium Succinate 60 mg 04/16/21 22:00 04/19/21 13:36 Methylprednisolone Sod Succinate 125 Mg/2 Ml Inj IV 60 mg Q8HR GEORGE Administration Ondansetron HCl 4 mg 04/16/21 18:49 Ondansetron 4 Mg/2 Ml Inj IV Q8H PRN Nausea And Vomiting Pseudoephedrine/Acetam/Chlorphenir 5 ml 04/19/21 13:29 04/19/21 17:32 Guaifenesin/Codeine 100-10mg Oral Liqd 5 Ml PO 5 ml Q6H PRN Administration Cough Sodium Chloride 10 ml 04/16/21 22:00 04/19/21 09:16 Sodium Chloride 0.9% 10 Ml Flush Syringe IV 10 ml BID GEORGE Administration Sodium Chloride 10 ml 04/17/21 08:08 Sodium Chloride 0.9% 50 Ml Ivpb IV PRN PRN FLUSH
[2021-04-20] MEDS: methylPREDNISolone Sod Succinate 125 MG/2 ML INJ IV SCH ×2 (06:20→15:09)
[2021-04-20 07:39] VITALS: BP 159/101
[2021-04-20] MEDS: HEPARIN 5,000 UNIT/1 ML VIAL SUB-Q SCH ×2 (09:35→09:40)
[2021-04-20] MEDS: guaiFENesin ER 600 MG TAB PO SCH (09:36)
[2021-04-20] MEDS: guaiFENesin/CODEINE 100-10MG ORAL LIQD 5 ML PO PRN (09:43)
[2021-04-20] MEDS: BUDESONIDE 0.5 MG/2 ML NEBU IH SCH (11:19)
[2021-04-20] MEDS: IPRATROPIUM/ALBUTEROL SULFATE 3 ML AMPUL.NEB IH SCH ×2 (11:19→14:32)
[2021-04-20] MEDS: ARFORMOTEROL 15 MCG/2 ML NEBU IH SCH (11:20)
--- NOTE | 2021-04-20 15:27 | Discharge Summary ---
Providers - Providers Date of Admission: 04/16/21 14:00 Attending physician: COLETTE CHRIS MD Primary care physician: [employer]ICAL [employer]IST Hospitalization Condition: Stable Hospital course: 56-year-old female with history of tobacco smoking, quit 4 months ago and asthma presents with wheezing for 3 days. Patient also having cough productive yellow sputum. Patient has not inhalers. No fever or chills. Patient had Covid vaccine in August 2020. Patient is not on home oxygen. Patient was hypoxic to 87/88% on room air in the emergency room. Patient was given multiple breathing treatments in the emergency room but continued to desaturate without oxygen. Patient wanted to sign out AMA but became hypoxic and then was convinced to stay back. (1) Acute respiratory failure with hypoxia Current Visit: Yes Status: Acute Plan to address problem: Started on 4 L nasal cannula oxygen, weaned to 2 L currently Patient needed home O2 for a month when he was admitted about 5 months ago. O2 sats dropped to 86% with ambulation on room air on 04/19, home O2 supply provided at the time of discharge, rate 2 L/min. (2) Acute COPD/bronchitis exacerbation Current Visit: Yes Status: Acute Plan to address problem: With cough, yellow sputum, wheezing, dyspnea and hypoxia Placed on nebs, IV antibiotics, mucolytic's and IV steroids Symptoms improving, start tapering steroids. Possible discharge tomorrow (3) tobacco smoking Current Visit: Yes Status: Acute Qualifiers: Asthma severity: severe Plan to address problem: Patient claims quitting 2 months ago Counseled on tobacco smoking Discharged to home on 2 L of oxygen for follow-up with PCP in a week. Patient was given prescription for prednisone taper, albuterol inhaler, DuoNeb and Levaquin to complete the course. Disposition: HOME / SELF CARE / HOMELESS Final Discharge Diagnosis (Prints w/discharge instructions): Acute pancreatitis/COPD exacerbation. Acute hypoxic respiratory failure, needing home O2. Tobacco smoking Core Measure Documentation - Palliative Care Palliative Care/ Comfort Measures: Not Applicable - Core Measures Any of the following diagnoses?: none Exam - Constitutional Vitals: Temp Pulse Resp BP Pulse Ox 97.5 F L 104 H 20 159/101 95 04/20/21 06:29 04/20/21 14:32 04/20/21 14:32 04/20/21 06:29 04/20/21 12:38 General appearance: Present: no acute distress - EENT Eyes: Present: PERRL, EOM intact ENT: clear oral mucosa - Neck Neck: Present: supple. Absent: masses or JVD - Respiratory Respiratory effort: normal Respiratory: bilateral: diminished, wheezing (Much improved) - Cardiovascular Rhythm: regular - Extremities Extremities: No edema - Abdominal General gastrointestinal: Present: soft, non-tender, non-distended - Integumentary Integumentary: Present: warm. Absent: rash - Musculoskeletal Musculoskeletal: strength equal bilaterally - Psychiatric Psychiatric: appropriate mood/affect - Neurologic Neurologic: no focal deficits, moves all extremities Plan Activity: advance as tolerated Diet: low fat Follow up with: PRIMARY CARE,MD [Primary Care Provider] - 3-5 Days Forms: AMA Form, Work/School Release Form(ED) Prescriptions: Ipratropium/Albuterol Sulfate [DUONEB *Not for PRN Use*] 1 ampul IH Q6HR PRN #50 ampul.neb PRN Reason: Bronchospasm Fluticasone [Flonase] 1 spray NS QDAY 30 Days #1 bottle levoFLOXacin [Levaquin] 750 mg PO QDAY #8 tablet Prednisone [predniSONE 10 mg (6-Day Pack, 21 Tabs)] 10 mg PO .TAPER 6 Days #1 tab.ds.pk Albuterol Mdi (or & Nicu Only) [ProAir HFA Inhaler] 2 puff IH QID PRN 30 Days #8.5 gram PRN Reason: Shortness Of Breath Montelukast [Singulair] 10 mg PO QPM 30 Days #30 tablet Cetirizine HCl [Zyrtec 10mg tab] 10 mg PO DAILY 30 Days #30 tablet
== END 2021-04-20 17:08 | disposition home or self-care (01) | DRG 189 ==
LOC: ED 11:25 → 3A 14:00
PROVIDERS: ADMIT Internal Medicine; ATTEND Internal Medicine
DX: J96.01 Acute respiratory failure with hypoxia (principal); K85.90 Acute pancreatitis without necrosis or infection, unspecified; J45.901 Unspecified asthma with (acute) exacerbation; J20.9 Acute bronchitis, unspecified; Z20.822 Contact with and (suspected) exposure to COVID-19; D75.1 Secondary polycythemia; Z88.5 Allergy status to narcotic agent; Z87.891 Personal history of nicotine dependence
CPT/HCPCS: 36415; 71045; 80048; 80053; 82140; 83036; 83880; 85025; 87040; 87400; 90686; 94640; 94644; 94760; G0378; J1644; J1956; J2930; J3475; U0003